=== PATIENT | male | born 1980 | race Caucasian/White ===

== ENCOUNTER 2020-10-17 17:14 | Emergency (ER) | payer OTHER, SELFPAY ==
--- NOTE | 2020-10-17 | ECG_ITS ---
Test Reason : CHEST PAIN Blood Pressure : / mmHG Vent. Rate : 076 BPM Atrial Rate : 076 BPM P-R Int : 142 ms QRS Dur : 082 ms QT Int : 382 ms P-R-T Axes : 064 015 020 degrees QTc Int : 429 ms Normal sinus rhythm Normal ECG When compared with ECG of 23-MAR-2013 18:39, No significant change was found Referred By: Elaine Reis Electronically Signed By:GLADYS CLEMENTS MD
[2020-10-17 17:46] VITALS: BP 124/69; PULSE 99; RESP 16; TEMP 36.5; O2SAT 99; BMI 36.3
--- NOTE | 2020-10-17 17:52 | CT_ITS ---
EXAMINATION: CT abdomen pelvis w con CLINICAL INFORMATION: Reason for Exam diffuse abd pain, worse RLQ and periumbillical COMPARISON: No prior CT available for comparison. TECHNIQUE: Multidetector volumetric imaging was performed from the superior aspect of the liver through the pubic symphysis 85 mL Omnipaque 350 injected. Sagittal and coronal reformatted images were obtained on the technologist's workstation. This CT examination was performed using dose optimization techniques as appropriate, variously including the following: *Automated exposure control *Adjustment of mA and/or kV according to patient size (this includes techniques or standardized protocols for targeted exams where dose is matched to indication/reason for exam; i.e. extremities or head) *Use of iterative reconstruction technique DLP: 851 mGy-cm FINDINGS: LOWER THORAX: Included lung bases are clear. HEPATOBILIARY: No focal hepatic lesions. No biliary ductal dilatation. GALLBLADDER: Gallbladder unremarkable. SPLEEN: Spleen is normal in size. PANCREAS: No focal mass or ductal dilatation. STOMACH AND GASTROINTESTINAL TRACT: Postsurgical changes of from prior partial gastrectomy, there is a fluid-filled structure at the GE junction which could be a hiatal hernia versus diverticulum measure 3.4 x 3.3 cm. There is no bowel distention or thickening. No CT evidence of appendicitis. ADRENALS: No adrenal nodules. KIDNEYS/URETERS: No hydronephrosis, stones or solid mass lesions. URINARY BLADDER: Partially decompressed. PELVIC VISCERA: Unremarkable PERITONEUM: There is a cloudy hazy mesentery mid abdomen just inferior to the pancreas, compatible with mesenteric panniculitis nonspecific radiologic finding. LYMPH NODES: No lymphadenopathy. VASCULAR:Abdominal aorta normal in size, no aneurysm found. BONES, ABDOMINAL WALL AND SOFT TISSUES: Age-appropriate changes of the spine and skeletal system, no destructive osteolytic or osteosclerotic bone lesion found CT/CT abdomen pelvis w con IMPRESSION: 1. No CT evidence of acute intra-abdominal process to explain patient's pain symptoms. No CT evidence of appendicitis. There is air within the lumen of the appendix which seem to be normal in diameter. 2. Postsurgical changes of from prior partial gastrectomy, there is fluid and air-filled structure at the GE junction which may represent hiatal hernia versus gastric diverticulum. 3. There is mild cloudy hazy mesentery mid abdomen just inferior to the pancreas, compatible with mesenteric panniculitis, nonspecific radiologic finding with long differential, please see below. Mesenteric panniculitis is a nonspecific finding and can coexistent with malignancy such as extra-abdominal non-Hodgkin lymphoma, breast carcinoma, prostate carcinoma, lung carcinoma, gastrointestinal carcinoma, colorectal carcinoma, melanoma, pancreatic neoplasm among other neoplasms. It also can coexist with benign process such as Crohn's disease, sarcoidosis, liver cirrhosis, colitis, lupus, sclerosing cholangitis, pancreatitis, mesenteritis, retroperitoneal fibrosis. It also could be idiopathic. Recommended clinical assessment and careful exclusion of possible other neoplasms. If no further action taken now, followup CT scan in 6 months advised. Reference: [place] [employer] December 1999, volume 174, #2.
--- NOTE | 2020-10-17 17:55 | ED.ABDPAIN ---
HPI - Abdominal Pain General Chief Complaint: Abdominal Pain Stated Complaint: ABD PAIN Time Seen by Provider: 10/17/20 17:44 Source: patient Mode of arrival: ambulatory Limitations: no limitations History of Present Illness HPI narrative: Patient comes to the emergency room complaining of abdominal pain. Patient states it started approximately 1 week ago with mild nausea, then patient noticed that every time he eats he has diffuse abdominal pain, seems to be worse in the periumbilical area and right lower quadrant. Patient states he has had kidney stones in the past where the pain is very different. Yesterday patient ate dinner pain was significant, then itself resolved. Earlier this morning patient had a small breakfast, had pain, resolved, then at 16:00 had dinner and the pain became unbearable. Therefore, patient came to the emergency room. Patient denies vomiting or constipation. Patient states the last 2 days he has had several episodes of loose stool, no blood in the stool. Of note, patient had a gastric sleeve surgery 1 year ago, which was done in [place]. MD elicited complaint: abdominal pain Related Data Previous Rx's Medication Instructions Recorded omeprazole 40 mg PO DAILY #20 cap 10/17/20 Allergies Allergy/AdvReac Type Severity Reaction Status Date / Time No Known Allergies Allergy Verified 10/17/20 19:28 Review of Systems Review of Systems Constitutional : No Weight loss, No Fever, No Chills, No Night Sweats, No Fatigue, No Malaise ENT/Mouth : No Hearing loss, No Ear Pain, No Nasal Congestion, No Sinus Pain, No Hoarseness, No sore throat, No Rhinorrhea, No Swallowing Difficulty Eyes: No Eye Pain, No Swelling, No Redness, No Foreign Body, No Discharge, No Vision Changes Cardiovascular : No Chest Pain, No SOB, No Dyspnea on Exertion, No Orthopnea, No Edema, No Palpitations Respiratory : No Cough, No Sputum, No Wheezing, No Smoke Exposure, No Dyspnea Gastrointestinal : No nausea, no vomiting, patient reports several episodes of loose stool, no blood in the stool, complaining diffuse abdominal pain after eating, much worse in the periumbilical area and right lower quadrant Genitourinary : no irregular bleeding, No Dysuria, No Urinary Frequency, No Hematuria, No Urinary Incontinence, No Urgency, No Flank Pain, No Urinary Flow Changes, No Hesitancy Musculoskeletal : No joint pain, No Myalgias, No Joint Swelling Skin : No Skin Lesions, No rash Neuro : No Weakness, No Numbness, No Paresthesias, No Loss of Consciousness, No Dizziness, No Headache Psych : No Anxiety/Panic, No Depression, No SI/HI/AH/VH, No Social Issues, Heme/Lymph: No Bruising, No Bleeding,No Lymphadenopathy Endocrine : No Polyuria, No Polydipsia, No Temperature Intolerance Physical Exam Vital Signs: Vital Signs: Last Vital Signs Temp 98.3 F 10/17/20 19:47 Pulse 83 10/17/20 19:47 Resp 20 10/17/20 19:47 BP 147/78 H 10/17/20 19:47 Pulse Ox 100 10/17/20 19:47 Body Mass Index 36.3 Appearance: Alert. Oriented X3. No acute distress. Eyes: Pupils equal, round and reactive to light. ENT: Pharynx normal. Neck: Normal inspection. Neck supple. No lymph nodes noted. No crepitus CVS: Normal heart rate and rhythm. Pulses normal. Normal S1 and S2 Respiratory: No respiratory distress. Breath sounds normal. No Wheezing. No rales Abdomen: Soft , no rigidity, no guarding, no peritoneal signs. Patient complaining of diffuse abdominal pain on deep palpation, much worse over the periumbilical area, right upper and lower quadrants. Skin: Skin warm and dry. Normal skin color. Normal skin turgor. Extremities: No lower extremity edema. No lower extremity edema. No Lacerations. No Rash Neuro: Oriented X 3. No motor deficit. No sensory deficit. Moving all extermities. No slurred speech. Course Course Course Narrative: While patient was waiting for his labs and CT scan reading to return, patient started complaining of left arm numbness and tingling and some chest discomfort. EKG was done immediately, within normal limits, troponin is pending. At this time, patient states he is asymptomatic. Patient's troponin is negative, EKG within normal limits. I discussed with the patient that he likely has gastritis versus peptic ulcer disease, I discussed the labs and CT scan with the patient. At this time, patient states that he feels well, no abdominal or chest pain. MDM - Abdominal Pain Lab Data Result diagrams: 10/17/20 18:17 10/17/20 18:17 Labs: Lab Results 10/17/20 10/17/20 10/17/20 Range/Units 18:17 18:17 18:17 WBC 7.8 (4.8-10.8) X10*3/uL RBC 4.92 (4.60-5.80) X10*6/uL Hgb 14.6 (14.0-18.0) g/dl Hct 43.2 (42-52) % MCV 87.8 (80-98) fL MCH 29.7 (27.0-33.0) pg MCHC 33.8 (31.0-36.0) g/dl RDW 12.2 (11.0-16.0) % Plt Count 284 (160-400) X10*3/uL MPV 9.7 (9.4-12.4) fL Immature Gran % (Auto) 0.3 (0.0-0.4) % Neut % (Auto) 57.4 (45-73) % Lymph % (Auto) 29.4 (20-40) % [place] % (Auto) 7.0 (2-11) % Eos % (Auto) 5.1 H (0-4) % Baso % (Auto) 0.8 (0-2) % Lymph # (Auto) 2.3 (1.2-4.9) X10*3/uL [place] # (Auto) 0.6 (0.1-1.2) X10*3/uL Eos # (Auto) 0.4 (0.0-0.4) X10*3/uL Baso # (Auto) 0.1 (0.0-0.2) X10*3/uL Abs Immat Gran (auto) 0.02 (0.00-0.03) X10*3/uL Absolute Neuts (auto) 4.5 (2.0-8.3) X10*3/uL Absolute Nucleated RBC 0.000 (0.0-0.012) X10*3/uL Nucleated RBC % (auto) 0.0 (0.0-0.2) /100WBC Sodium 140 (135-145) mmol/L Potassium 4.5 (3.3-5.1) mmol/l Chloride 106 (96-108) mmol/L Carbon Dioxide 26 (22-29) mmol/L Anion Gap 13 (12-20) BUN 16 (9-16) mg/dL Creatinine 1.21 (0.5-1.4) mg/dL Estim Creat Clear Calc 105.0 Estimated GFR > 60 Random Glucose 107 (60-115) mg/dL Calcium 9.2 (8.4-10.2) mg/dL Total Bilirubin 0.5 (0.0-1.0) mg/dL Direct Bilirubin < 0.2 (0.0-0.5) mg/dL AST 22 (5-37) U/L ALT 25 (0-40) U/L Alkaline Phosphatase 54 (39-117) U/L Troponin I High Sens (<3.5-35.0) ng/L Total Protein 7.2 (6.5-8.0) g/dL Albumin 4.5 (3.5-5.0) g/dL Lipase 48 (8-78) U/L Urine Color YELLOW Urine Appearance CLEAR Urine pH 5.5 (5.0-8.0) Ur Specific [place] >= 1.030 H (1.005-1.025) Urine Protein NEG (NEG-TRACE) MG/DL Urine Glucose (UA) NEG (NEG) MG/DL Urine Ketones NEG (NEG) MG/DL Urine Blood NEG (NEG) Urine Nitrite NEG (NEG) Ur Leukocyte Esterase NEG (NEG) 10/17/20 Range/Units 20:27 WBC (4.8-10.8) X10*3/uL RBC (4.60-5.80) X10*6/uL Hgb (14.0-18.0) g/dl Hct (42-52) % MCV (80-98) fL MCH (27.0-33.0) pg MCHC (31.0-36.0) g/dl RDW (11.0-16.0) % Plt Count (160-400) X10*3/uL MPV (9.4-12.4) fL Immature Gran % (Auto) (0.0-0.4) % Neut % (Auto) (45-73) % Lymph % (Auto) (20-40) % [place] % (Auto) (2-11) % Eos % (Auto) (0-4) % Baso % (Auto) (0-2) % Lymph # (Auto) (1.2-4.9) X10*3/uL [place] # (Auto) (0.1-1.2) X10*3/uL Eos # (Auto) (0.0-0.4) X10*3/uL Baso # (Auto) (0.0-0.2) X10*3/uL Abs Immat Gran (auto) (0.00-0.03) X10*3/uL Absolute Neuts (auto) (2.0-8.3) X10*3/uL Absolute Nucleated RBC (0.0-0.012) X10*3/uL Nucleated RBC % (auto) (0.0-0.2) /100WBC Sodium (135-145) mmol/L Potassium (3.3-5.1) mmol/l Chloride (96-108) mmol/L Carbon Dioxide (22-29) mmol/L Anion Gap (12-20) BUN (9-16) mg/dL Creatinine (0.5-1.4) mg/dL Estim Creat Clear Calc Estimated GFR Random Glucose (60-115) mg/dL Calcium (8.4-10.2) mg/dL Total Bilirubin (0.0-1.0) mg/dL Direct Bilirubin (0.0-0.5) mg/dL AST (5-37) U/L ALT (0-40) U/L Alkaline Phosphatase (39-117) U/L Troponin I High Sens 3.7 (<3.5-35.0) ng/L Total Protein (6.5-8.0) g/dL Albumin (3.5-5.0) g/dL Lipase (8-78) U/L Urine Color Urine Appearance Urine pH (5.0-8.0) Ur Specific [place] (1.005-1.025) Urine Protein (NEG-TRACE) MG/DL Urine Glucose (UA) (NEG) MG/DL Urine Ketones (NEG) MG/DL Urine Blood (NEG) Urine Nitrite (NEG) Ur Leukocyte Esterase (NEG) ECG Data Attestation: I personally reviewed and interpreted this ECG as follows: (Heart rate 76, normal sinus rhythm, QTC 429, no ST segment elevations or depressions, no T-wave inversions) Discharge Plan Discharge Clinical Impression: Abdominal pain Qualifiers: Abdominal location: unspecified location Qualified Code(s): R10.9 - Unspecified abdominal pain Gastritis Qualifiers: Gastritis type: unspecified gastritis Chronicity: acute Gastritis bleeding: without bleeding Qualified Code(s): K29.00 - Acute gastritis without bleeding Patient Disposition: Home, Self-Care Instructions: Gastritis (ED), Diet for Stomach Ulcers and Gastritis (ED) Additional Instructions: Please follow-up with your primary care physician tomorrow. If you have any worsening or new symptoms, please return to the emergency room or call 911 Prescriptions: New omeprazole 40 mg capsule,delayed release(DR/EC) 40 mg PO DAILY Qty: 20 RF: 0 PMFSH Past Medical History Medical History HTN (hypertension) Surgical History (Updated 10/17/20 @ 18:00 by Elaine Reis MD) History of sleeve gastrectomy Social History Social History Smoking Status: Never smoker Smoked in Last 30 Days: No Use of substances other than those prescribed or required for medical reasons: No Advance Directives: No Advance Directives Information Provided: Yes
[2020-10-17 18:23] LABS: Basophils Absolute Auto 0.1 X10*3/uL (0.0-0.2); Basophils Percent Auto 0.8 % (0-2); Eosinophils Absolute Auto 0.4 X10*3/uL (0.0-0.4); Eosinophils Percent Auto 5.1 % (0-4); Hematocrit 43.2 % (42-52); Hemoglobin 14.6 g/dl (14.0-18.0); Imm Gran Abs Auto 0.02 X10*3/uL (0.00-0.03); Imm Gran Pct Auto 0.3 % (0.0-0.4); Lymphocytes Absolute Auto 2.3 X10*3/uL (1.2-4.9); Lymphocytes Percent Auto 29.4 % (20-40); MANUAL DIFF FLAG NO; Mean Corpuscular HGB Conc 33.8 g/dl (31.0-36.0); Mean Corpuscular Hemoglobin 29.7 pg (27.0-33.0); Mean Corpuscular Volume 87.8 fL (80-98); Mean Platelet Volume 9.7 fL (9.4-12.4); Monocytes Absolute Auto 0.6 X10*3/uL (0.1-1.2); Neutrophils Absolute Auto 4.5 X10*3/uL (2.0-8.3); Neutrophils Percent Auto 57.4 % (45-73); Platelet Count 284 X10*3/uL (160-400); Red Blood Count 4.92 X10*6/uL (4.60-5.80); Red Cell Distribution Width 12.2 % (11.0-16.0); White Blood Count 7.8 X10*3/uL (4.8-10.8)
[2020-10-17 18:24] LABS: Appearance Urine CLEAR; Color Urine YELLOW; Glucose Urine UA NEG (NEG); Leukocyte Esterase Urine NEG (NEG); Nitrite Urine NEG (NEG); PH 5.5 (5.0-8.0); Specific Gravity - Urine >= 1.030 (1.005-1.025); Urine Blood NEG (NEG); Urine Ketones NEG (NEG); Urine Protein NEG (NEG-TRACE)
[2020-10-17] MEDS: 0.9 % Sodium Chloride 1,000 ML 999 ML IVCONT (18:34)
[2020-10-17] MEDS: Morphine Sulfate 4 MG/ML CARTRIDGE IVPUSH (18:34)
[2020-10-17 18:44] LABS: Alanine Aminotransferase 25 U/L (0-40); Albumin Level 4.5 g/dL (3.5-5.0); Alkaline Phosphatase 54 U/L (39-117); Anion Gap 13 (12-20); Aspartate Amino Transferase 22 U/L (5-37); Bilirubin Direct < 0.2 mg/dL (0.0-0.5); Bilirubin Total 0.5 mg/dL (0.0-1.0); Blood Urea Nitrogen 16 mg/dL (9-16); Calcium 9.2 mg/dL (8.4-10.2); Carbon Dioxide 26 mmol/L (22-29); Chloride 106 mmol/L (96-108); Estimated Glomerular Filt Rate > 60; Glucose Random 107 mg/dL (60-115); Lipase 48 U/L (8-78); Potassium 4.5 mmol/l (3.3-5.1); Sodium 140 mmol/L (135-145); Total Protein 7.2 g/dL (6.5-8.0)
[2020-10-17] MEDS: iohexoL 350 MG/ML 100 ML INFUS..BTL IV (19:11)
[2020-10-17 19:29] VITALS: BP 130/73; PULSE 76; RESP 18; TEMP 36.6; O2SAT 99
[2020-10-17 19:47] VITALS: BP 147/78; PULSE 83; RESP 20; TEMP 36.8; O2SAT 100
--- NOTE | 2020-10-17 20:11 | MHC.PIE ---
P: c/o chest tightness and right arm weakness. I: vss. ekg done, shows nsr. neuro intact. bedside cardiac monitoring initiated. made aware. n/o troponin.
[2020-10-17 20:57] LABS: Troponin-I High Sensitivity 3.7 ng/L (<3.5-35.0)
[2020-10-17] MEDS: Magnesium Hydrox/Alum Hydrox 30 ML ORAL.SUSP 15 ML PO (21:39)
[2020-10-17] MEDS: Lidocaine HCl Viscous 2 % 15 ML SOLUTION MUCOUS MEM (21:39)
== END 2020-10-17 21:50 | disposition home or self-care (01) ==
PROVIDERS: Emergency Provider Emergency Medicine; PCP Internal Medicine
DX: R10.9 Unspecified abdominal pain (principal); K29.00 Acute gastritis without bleeding; Z98.84 Bariatric surgery status; Z79.899 Other long term (current) drug therapy
CPT/HCPCS: 36415; 74177; 80048; 80076; 81003; 83690; 84484; 85025; 93005; 96361; 96374; 99284; 99285; J2270; Q9967

== ENCOUNTER 2020-10-22 13:57 | Outpatient (REF) | payer OTHER, SELFPAY | END 2020-10-22 13:58 | disposition home or self-care (01) | LOC: HO.LNP 13:57 | PROVIDERS: Visit Provider Internal Medicine | DX: Z20.828 Contact with and (suspected) exposure to other viral communicable diseases (principal) | CPT/HCPCS: U0003 ==

== ENCOUNTER 2020-11-18 08:54 | Outpatient (REF) | payer OTHER, SELFPAY | END 2020-11-18 08:55 | disposition home or self-care (01) | LOC: HO.LAB 08:54 | PROVIDERS: Visit Provider Internal Medicine | DX: Z20.828 Contact with and (suspected) exposure to other viral communicable diseases (principal) | CPT/HCPCS: C9803; U0003 ==

== ENCOUNTER 2021-03-03 20:42 | Emergency (ER) | payer OTHER, SELFPAY ==
[2021-03-03 22:11] VITALS: BP 129/71; PULSE 69; RESP 18; TEMP 37; O2SAT 99; BMI 36.2
[2021-03-03 22:49] LABS: Appearance Urine CLEAR; Color Urine YELLOW; Glucose Urine UA NEG (NEG); Leukocyte Esterase Urine NEG (NEG); Nitrite Urine NEG (NEG); Specific Gravity - Urine 1.025 (1.005-1.025); Urine Blood TRACE (NEG); Urine Ketones NEG (NEG); Urine Protein NEG (NEG-TRACE)
[2021-03-03 22:58] LABS: Bacteria Urine TRACE /LPF; RBC Urine 0-2 /HPF (0); WBC Urine 0 /HPF (0-4)
[2021-03-03 23:54] VITALS: BP 130/71; PULSE 65; RESP 18; TEMP 36.9; O2SAT 100
[2021-03-04] MEDS: Azithromycin 500 MG TABLET 1000 MG PO (01:16)
[2021-03-04] MEDS: cefTRIAXone sodium 500 MG, Lidocaine HCl 1 % MPF 1 ML IM (01:20)
--- NOTE | 2021-03-04 01:25 | ED_ITS ---
HPI - Male Genitourinary General Chief complaint: Urogenital-Male Stated complaint: Groin pain Time Seen by Provider: 03/04/21 00:35 Source: patient Mode of arrival: ambulatory Limitations: no limitations History of Present Illness HPI Narrative: 41-year-old male with no significant past medical history presents with dysuria and purulent penile discharge. Does not describe any testicular pain, and states to be in a monogamous relationship. Denies fevers, chills, chest pain or pressure, palpitations, shortness of breath, abdominal pain, abdominal distention, frequency, hesitancy, pain on defecation, diarrhea, constipation, or any other concerning symptoms. Complaint: penile discharge and dysuria Onset (ago): day(s) (4) Duration: constant Location: penis Severity: moderate Quality: burning Relieving factors: none Exacerbating factors: urination Associated symptoms: Reports denies other symptoms Related Data Sexually active: Yes Previous Rx's Medication Instructions Recorded omeprazole 40 mg PO DAILY #20 cap 10/17/20 Allergies Allergy/AdvReac Type Severity Reaction Status Date / Time No Known Allergies Allergy Verified 03/03/21 22:11 Review of Systems Review of Systems: Constitutional: No Fever, No Chills ENT/Mouth: No Ear Pain, No Hoarseness, No sore throat Eyes: No Eye Pain, No Swelling, No Redness, No Foreign Body Cardiovascular: No Chest Pain, No SOB Respiratory: No Cough, No Dyspnea Gastrointestinal: No Nausea, No Vomiting, No Diarrhea, No abdominal Pain Genitourinary: Positive Dysuria, positive penile discharge, No Hematuria Musculoskeletal: No joint pain, No Myalgias, No Joint Swelling Skin: No Skin lacerations, No rash Neuro: No Weakness, No Numbness, No Paresthesias, No Loss of Consciousness, No Dizziness, No Headache Psych: No Anxiety/Panic, No Depression Heme/Lymph: no easy bruising, no Lymphadenopathy Endocrine: No Polyuria, No Polydipsia Yes all other systems are reviewed and are negative [facility] Past Medical History Attestation statement: The following information was validated with the patient. Source: old records reviewed Medical History HTN (hypertension) Surgical History History of sleeve gastrectomy Social History Social History Smoking Status: Never smoker Advance Directives: No Physical Exam Vital Signs: Vital Signs: Last Vital Signs Temp 98.5 F 03/03/21 23:54 Pulse 65 03/03/21 23:54 Resp 18 03/03/21 23:54 BP 130/71 03/03/21 23:54 Pulse Ox 100 03/03/21 23:54 Body Mass Index 36.2 Appearance: Alert. Oriented X3. No acute distress. Eyes: Pupils equal, round and reactive to light. ENT: Pharynx normal. Neck: Normal inspection. Neck supple. CVS: Normal heart rate and rhythm. Pulses normal. Respiratory: No respiratory distress. Breath sounds normal. Abdomen: Soft and nontender. Genitourinary: No testicular pain, normal testicular exam, purulent penile discharge noted, no erythema or lesions noted to glans, shaft of penis, or testicles. Skin: Skin warm and dry. Normal skin color. Normal skin turgor. Extremities: No lower extremity edema. Neuro: No motor deficit. No sensory deficit. Course Course Course Narrative: 41-year-old male with no significant past medical history presents with penile discharge and dysuria. Will treat with ceftriaxone 500 mg IM and azithromycin. Patient was advised to follow up with Urology as he adamantly denies STI risk. Reassured patient verbalized understanding of and agrees to plan of care discharge home. MDM - Male Genitourinary MDM Narrative Medical decision making narrative: STI Differential Diagnosis Differential diagnosis: Likely urinary tract infection, urethritis, epididymitis and prostatitis Medical Records Attestation: I reviewed the patient's medical records. Lab Data Attestation: I reviewed the patient's lab results. Labs: Lab Results 03/03/21 Range/Units 22:29 Urine Color YELLOW Urine Appearance CLEAR Urine pH 6.0 (5.0-8.0) Ur Specific [place] 1.025 (1.005-1.025) Urine Protein NEG (NEG-TRACE) MG/DL Urine Glucose (UA) NEG (NEG) MG/DL Urine Ketones NEG (NEG) MG/DL Urine Blood TRACE (NEG) Urine Nitrite NEG (NEG) Ur Leukocyte Esterase NEG (NEG) Urine RBC 0-2 (0) /HPF Urine WBC 0 (0-4) /HPF Ur Squamous Epith Cells NONE /LPF Urine Bacteria TRACE /LPF Discharge Plan Discharge Clinical Impression: Urethritis Patient Disposition: Home, Self-Care Instructions: Nonspecific Urethritis in Men (ED) Additional Instructions: You were treated for urinary symptoms and penile discharge. We treated you with ceftriaxone and azithromycin. Please follow-up with Urology and or primary care as needed. Do not engage in sexual intercourse for at least 2 weeks. Thank you for choosing this emergency department for evaluation. Please follow-up with primary care physician as needed. Return to the emergency department for any new, concerning, or worsening symptoms. Prescriptions: No Action omeprazole 40 mg capsule,delayed release(DR/EC) 40 mg PO DAILY Qty: 20 RF: 0 Referrals: Billy Romero MD [Physician] - 2 days (Urethritis) Stand Alone Forms: Work/School Release Interventions: ED Discharge Assessment Last Done: 03/04/21 01:57 Discharge Date/Time: 03/04/21 01:58
[2021-03-04 05:01] LABS: CT PCR NOT DETECTED (Not Detect.); NG PCR DETECTED (Not Detect.)
== END 2021-03-04 01:58 | disposition home or self-care (01) ==
PROVIDERS: Emergency Provider Student in an Organized Health Care Education/Training Program; PCP Internal Medicine
DX: N34.2 Other urethritis (principal); A54.09 Other gonococcal infection of lower genitourinary tract; I10 Essential (primary) hypertension
CPT/HCPCS: 81001; 87491; 87591; 96372; 99284; J0696

== ENCOUNTER 2021-08-28 10:44 | Outpatient (REF) | payer OTHER, SELFPAY ==
[2021-08-28 11:41] LABS: Influenza A PCR NEGATIVE (Negative); Influenza B PCR NEGATIVE (Negative); Resp Syncy Virus RNA Qual PCR NEGATIVE (Negative); SARS COV2 PCR INHOUSE NEGATIVE (Negative)
== END 2021-08-28 10:45 | disposition home or self-care (01) ==
LOC: HO.LNP 10:44
PROVIDERS: Visit Provider Internal Medicine
DX: Z20.822 Contact with and (suspected) exposure to COVID-19 (principal); J02.9 Acute pharyngitis, unspecified; M79.10 Myalgia, unspecified site
CPT/HCPCS: 0241U

== ENCOUNTER 2021-11-07 10:59 | Outpatient (REF) | payer OTHER, SELFPAY ==
[2021-11-07 12:00] LABS: Influenza A PCR NEGATIVE (Negative); Influenza B PCR NEGATIVE (Negative); Resp Syncy Virus RNA Qual PCR NEGATIVE (Negative); SARS COV2 PCR INHOUSE NEGATIVE (Negative)
== END 2021-11-07 11:00 | disposition home or self-care (01) ==
LOC: HO.LNP 10:59
PROVIDERS: PCP Internal Medicine; Visit Provider Internal Medicine
DX: Z20.822 Contact with and (suspected) exposure to COVID-19 (principal); R51.9 Headache, unspecified; R50.9 Fever, unspecified
CPT/HCPCS: 0241U

== ENCOUNTER 2022-07-10 07:36 | Outpatient (REF) | payer OTHER, SELFPAY ==
[2022-07-10 10:28] LABS: MANUAL DIFF FLAG NO
[2022-07-10 10:30] LABS: Basophils Absolute Auto 0.1 X10*3/uL (0.0-0.2); Basophils Percent Auto 0.7 % (0-2); Eosinophils Absolute Auto 0.4 X10*3/uL (0.0-0.4); Eosinophils Percent Auto 4.4 % (0-4); Hematocrit 45.3 % (42.0-52.0); Hemoglobin 15.2 g/dl (14.0-18.0); Imm Gran Abs Auto 0.02 X10*3/uL (0.00-0.03); Imm Gran Pct Auto 0.2 % (0.0-0.4); Lymphocytes Absolute Auto 2.5 X10*3/uL (1.2-4.9); Lymphocytes Percent Auto 29.3 % (20-40); Mean Corpuscular HGB Conc 33.6 g/dl (31.0-36.0); Mean Corpuscular Hemoglobin 29.5 pg (27.0-33.0); Mean Corpuscular Volume 87.8 fL (80.0-98.0); Mean Platelet Volume 10.5 fL (9.4-12.4); Monocytes Absolute Auto 0.6 X10*3/uL (0.1-1.2); Monocytes Percent Auto 6.9 % (2-11); Neutrophils Absolute Auto 4.9 x10*3/uL (2.0-8.3); Neutrophils Percent Auto 58.5 % (45-73); Platelet Count 297 X10*3/uL (160-400); Red Blood Count 5.16 X10*6/uL (4.60-5.80); Red Cell Distribution Width 12.4 % (11.0-16.0); White Blood Count 8.4 X10*3/uL (4.8-10.8)
[2022-07-10 10:44] LABS: Alanine Aminotransferase 22 U/L (0-40); Albumin Level 4.3 g/dL (3.5-5.0); Alkaline Phosphatase 58 U/L (39-117); Anion Gap 12 (12-20); Aspartate Amino Transferase 19 U/L (5-37); Bilirubin Total 0.6 mg/dL (0.0-1.0); Blood Urea Nitrogen 13 mg/dL (9-16); Calcium 9.9 mg/dL (8.4-10.2); Carbon Dioxide 29 mmol/L (22-29); Chloride 106 mmol/L (96-108); Cholesterol 240 mg/dL; Estimated Glomerular Filt Rate > 60; Glucose Fasting 92 mg/dL (60-99); HDL Cholesterol 55 mg/dL; LDL Cholesterol Calculated 166 mg/dl; Potassium 4.9 mmol/L (3.3-5.1); Sodium 142 mmol/L (135-145); Total Protein 6.8 g/dL (6.5-8.0); Triglycerides 95 mg/dL
[2022-07-10 10:56] LABS: Appearance Urine Clear; Color Urine Yellow; Glucose Urine UA Negative (Negative); Leukocyte Esterase Urine Negative (Negative); Nitrite Urine Negative (Negative); Specific Gravity - Urine >= 1.030 (1.005-1.025); Urine Blood Negative (Negative); Urine Ketones Negative (Negative); Urine Protein Negative (Neg-Trace)
[2022-07-10 11:02] LABS: HBS Num1 0.08 mIU/mL (0-7.99); ~Hepatitis B Surface Antibody NONREACTIVE (Nonreactive)
[2022-07-10 11:09] LABS: Thyroid Stimulating Hormone 2.02 uIU/mL (0.32-4.0)
[2022-07-14 21:12] LABS: TS Negative Control Passed; TS Panel A 1; TS Panel B 1; TS Positive Control Passed; TSpotTB Negative (Negative)
== END 2022-07-10 07:37 | disposition home or self-care (01) ==
LOC: HO.10HDL 07:36
PROVIDERS: Visit Provider Internal Medicine
DX: Z00.00 Encounter for general adult medical examination without abnormal findings (principal); Z11.1 Encounter for screening for respiratory tuberculosis; R63.5 Abnormal weight gain
CPT/HCPCS: 36415; 80053; 80061; 81003; 84443; 85025; 86481; 86706

== ENCOUNTER 2022-07-16 07:49 | Outpatient (REF) | payer OTHER, SELFPAY ==
--- NOTE | ~2022-07-16 | FL_ITS ---
EXAMINATION: XR FLUOROSCOPY UPPER GI WITH AIR CLINICAL INFORMATION: Gastroesophageal reflux disease. Abdominal pain. COMPARISON: None TECHNIQUE: Upper GI was performed using thin and thick barium and effervescent granules. FINDINGS: There is abnormal esophageal motility with tertiary contractions. Exam is limited as the patient could not drink a large amount of barium. There is diffuse mucosal irregularity suggestive of esophagitis. No mass or stricture is seen. No hernia is seen. Evaluation for reflux is limited as the patient could not tolerate a large amount of oral contrast. There are postsurgical changes to the stomach following gastric sleeve procedure. No fold thickening, mass, ulcer or stricture is seen. Visualized small bowel is normal. FLUOROSCOPY TIME: 1.3 minutes DOSE AREA PRODUCT: 12.6 moreau per centimeter squared. 29 saved fluoroscopic images. FL/FL upper GI w air IMPRESSION: Limited exam as the patient could not drink large amount of oral contrast. Abnormal esophageal motility and esophagitis.
== END 2022-07-16 07:50 | disposition home or self-care (01) ==
LOC: HO.XRAY 07:49
PROVIDERS: PCP Internal Medicine; Visit Provider Internal Medicine
DX: K21.9 Gastro-esophageal reflux disease without esophagitis (principal); R10.9 Unspecified abdominal pain
CPT/HCPCS: 74246

== ENCOUNTER 2022-07-27 09:38 | Emergency (ER) | payer OTHER, SELFPAY ==
[2022-07-27 09:40] VITALS: BP 139/74; PULSE 90; RESP 18; TEMP 36.9; O2SAT 98; BMI 37.3
--- NOTE | 2022-07-27 09:59 | ED_ITS ---
HPI - General Adult General Chief complaint: Nausea/Vomiting/Diarrhea Stated complaint: Vomiting/Upper abd pain Time Seen by Provider: 07/27/22 09:59 Source: patient Mode of arrival: ambulatory Limitations: no limitations History of Present Illness HPI narrative: Patient is a 42 year old male presenting to the emergency department today with abdominal pain and nausea. Patient states that over the last 2 days he has had nausea and abdominal pain. Patient states that he is supposed to be getting an upper scope at some point soon for other stomach issues he has been having. Patient denies any dizziness, lightheadedness, fever, chills, blurry vision, double vision, loss of vision, chest pain, difficulty breathing, shortness of breath, back pain, night sweats, pain with urination, increased urinary frequency, increased urinary urgency, blood in his urine or stool, syncope or a near syncopal episode, recent trauma or falls, bowel incontinence, bladder incontinence, bowel retention, bladder retention, or any other complaints at this time. Onset (ago): day(s) (2) Location: abdomen Radiation: non-radiation Severity: mild Severity scale (1-10): 1 Quality: dull Pain Consistency: constant Relieving factors: none Exacerbating factors: none Associated symptoms: nausea/vomiting Treatments prior to arrival: none Related Data Previous Rx's Medication Instructions Recorded omeprazole 40 mg capsule,delayed 40 mg PO DAILY #20 caps 10/17/20 release Allergies Allergy/AdvReac Type Severity Reaction Status Date / Time No Known Allergies Allergy Verified 03/03/21 22:11 Review of Systems Constitutional: Constitutional: Reports no additional constitutional complaints, Denies chills, Denies fever(s) and Denies night sweats Eyes: Eyes: Reports no additional eye complaints, Denies blurry vision, Denies change in vision, Denies diplopia, Denies eye discharge, Denies loss of vision and Denies eye pain ENT: Denies dizziness Cardiovascular: Cardiovascular: Reports no additional cardiovascular c omplaints, Denies chest pain, Denies lightheadedness, Denies Loss of Consciousness and Denies dyspnea Respiratory: Respiratory: Reports no additional respiratory complaints and Denies dyspnea Gastrointestinal: Gastrointestinal: Reports no additional gastrointestinal complaints, Reports abdominal pain, Denies melena, Denies hematochezia, Denies change in bowel habits, Denies change in stool character, Reports nausea and Reports vomiting Genitourinary: Genitourinary: Reports no additional male genitourinary complaints, Denies hematuria, Denies oliguria, Denies difficulty urinating, Denies dysuria, Denies urinary frequency, Denies urinary hesitancy, Denies urinary incontinence and Denies urinary urgency Musculoskeletal: Musculoskeletal: Reports no additional musculoskeletal co mplaints, Denies numbness and Denies tingling Neurologic: Denies dizziness, Denies loss of vision, Denies numbness and Denies tingling Psychiatric: Psychiatric: Reports no additional psychiatric complaints Endocrine: Endocrine: Reports no additional endocrine complaints Hematologic/Lymphatic: Hematologic/Lymphatic: Reports no additional hematologic/lymphatic complaints Allergic/Immunologic: Allergic/Immunologic: Reports no additional allergic/immunologic complaints [facility] Past Medical History Attestation statement: The following information was validated with the patient. Source: old records reviewed Medical History HTN (hypertension) Surgical History History of sleeve gastrectomy Social History Social History Advance Directives: No Advance Directives Information Provided: No Physical Exam ED Vital Signs: Vital Signs - 24 hr 07/27/22 09:40 Temperature 98.4 F Pulse Rate 90 Respiratory Rate 18 Blood Pressure 139/74 Pulse Oximetry 98 Oxygen Delivery Method Room Air BMI result Body Mass Index 37.3 Const General: cooperative, no acute distress, alert and awake Nutritional Appearance: well nourished Orientation/consciousness: patient oriented x3 Limitations: no limitations [facility] Head: Yes normal to inspection and Yes atraumatic Ears: hearing grossly normal bilaterally and external ears normal General nose exam: Normal external nose present, no nasal discharge noted and no epistaxis Face and sinus: Yes normal facial exam, No abrasion and No laceration Mouth: Normal oral and palatal mucosa present, no drooling and no muffled voice Eyes General: appearance normal, both eyes and all related structures Periorbital: periorbital findings normal Eyelids: Yes eyelids normal Conjunctivae: conjunctivae normal Pupils: Equal, round and reactive pupils present EOM: EOMs intact bilaterally Neck Neck: Yes normal visual inspection, Yes full ROM and Yes no lymphadenopathy Chest Chest palpation & inspection: normal inspection of the chest Resp Effort & Inspection: normal respiratory effort and able to speak in complete sentences Auscultation: clear to auscultation bilaterally Cardio Rate: regular rate Rhythm: regular rhythm GI Inspection: Yes normal to inspection Palpation (GI): Soft to palpation, not firm, nontender, no guarding and not rig id Neuro General: patient oriented x3 and moves all extremities Cranial nerves: Yes Equal, round and reactive pupils present Cognition (Neuro): normal cognition Motor exam (neuro): 5/5 motor strength present throughout Sensory Exam: Normal double simultaneous stimulation for sensation Coordination: [id number] test normal Extrem General: Yes normal to inspection, Yes full ROM and Yes capillary refill normal Psych Appearance: grossly normal Mental Status: mental status grossly normal Affect: normal affect Attitude: cooperative Thought process: Normal thought process present Thought content: Normal thought content present Insight: Good insight present (Psych) Medical Decision Making MDM Narrative Medical decision making narrative: Patient is a 42 year old [male/female] presenting to the emergency department today with abdominal pain and nausea. Patient's physical exam was unremarkable. Patient's blood work was unremarkable. Patient's rapid COVID-19 test was positive. I explained my physical exam findings as well as all test results to the patient. I answered all questions asked by the patient. I stressed the importance of the patient taking his medication as prescribed. I stressed the importance of the patient following up with his primary care provider. I stressed the importance of the patient returning to the emergency department immediately if his symptoms were to worsen or if he were to develop any dizziness, shortness of breath, difficulty breathing, chest pain, blurry vision, loss of vision, nausea, vomiting, abdominal pain, fever, chills, back pain, or any other complaints. Patient verbalized agreement and understanding with this treatment plan and discharge. Differential Diagnosis Differential Diagnosis: COVID-19 Medical Records Medical records reviewed: Yes I reviewed the patient's medical records. Lab Data Lab results reviewed: Yes I reviewed the patient's lab results. Result diagrams: 07/27/22 10:16 07/27/22 11:11 Labs: Lab Results 07/27/22 07/27/22 07/27/22 Range/Units 10:16 10:16 10:24 WBC 10.9 H (4.8-10.8) X10*3/uL RBC 5.50 (4.60-5.80) X10*6/uL Hgb 16.0 (14.0-18.0) g/dl Hct 47.0 (42.0-52.0) % MCV 85.5 (80.0-98.0) fL MCH 29.1 (27.0-33.0) pg MCHC 34.0 (31.0-36.0) g/dl RDW 12.2 (11.0-16.0) % Plt Count 303 (160-400) X10*3/uL MPV 10.1 (9.4-12.4) fL Immature Gran % (Auto) 0.3 (0.0-0.4) % Neut % (Auto) 85.1 H (45-73) % Lymph % (Auto) 6.4 L (20-40) % [place] % (Auto) 7.0 (2-11) % Eos % (Auto) 0.6 (0-4) % Baso % (Auto) 0.6 (0-2) % Lymph # (Auto) 0.7 L (1.2-4.9) X10*3/uL [place] # (Auto) 0.8 (0.1-1.2) X10*3/uL Eos # (Auto) 0.1 (0.0-0.4) X10*3/uL Baso # (Auto) 0.1 (0.0-0.2) X10*3/uL Abs Immat Gran (auto) 0.03 (0.00-0.03) X10*3/uL Absolute Neuts (auto) 9.3 H (2.0-8.3) x10*3/uL Absolute Nucleated RBC 0.000 (0.0-0.012) X10*3/uL Nucleated RBC % (auto) 0.0 (0.0-0.2) /100WBC Sodium (135-145) mmol/L Potassium (3.3-5.1) mmol/L Chloride (96-108) mmol/L Carbon Dioxide (22-29) mmol/L Anion Gap (12-20) BUN (9-16) mg/dL Creatinine (0.5-1.4) mg/dL Estim Creat Clear Calc Estimated GFR Random Glucose (60-115) mg/dL Calcium (8.4-10.2) mg/dL Magnesium (1.6-2.6) mg/dL Total Bilirubin (0.0-1.0) mg/dL AST (5-37) U/L ALT (0-40) U/L Alkaline Phosphatase (39-117) U/L Total Protein (6.5-8.0) g/dL Albumin (3.5-5.0) g/dL Urine Color Yellow Urine Appearance Clear Urine pH 8.5 (5.0-9.0) Ur Specific [place] 1.020 (1.005-1.025) Urine Protein Negative (Neg-Trace) mg/dL Urine Glucose (UA) Negative (Negative) mg/dL Urine Ketones Negative (Negative) mg/dL Urine Blood Negative (Negative) Urine Nitrite Negative (Negative) Ur Leukocyte Esterase Trace H (Negative) Urine RBC 0-2 (0-2) /HPF Urine WBC 0-5 (0-5) /HPF Ur Squamous Epith Cells 0-2 (0-2) /HPF Urine Bacteria None Seen (None Seen) Hyaline Casts 0-2 (0-2) /LPF COVID-19 (NICOLASA) Positive A (Negative) COVID-19 Clin Com See Note 07/27/22 Range/Units 11:11 WBC (4.8-10.8) X10*3/uL RBC (4.60-5.80) X10*6/uL Hgb (14.0-18.0) g/dl Hct (42.0-52.0) % MCV (80.0-98.0) fL MCH (27.0-33.0) pg MCHC (31.0-36.0) g/dl RDW (11.0-16.0) % Plt Count (160-400) X10*3/uL MPV (9.4-12.4) fL Immature Gran % (Auto) (0.0-0.4) % Neut % (Auto) (45-73) % Lymph % (Auto) (20-40) % [place] % (Auto) (2-11) % Eos % (Auto) (0-4) % Baso % (Auto) (0-2) % Lymph # (Auto) (1.2-4.9) X10*3/uL [place] # (Auto) (0.1-1.2) X10*3/uL Eos # (Auto) (0.0-0.4) X10*3/uL Baso # (Auto) (0.0-0.2) X10*3/uL Abs Immat Gran (auto) (0.00-0.03) X10*3/uL Absolute Neuts (auto) (2.0-8.3) x10*3/uL Absolute Nucleated RBC (0.0-0.012) X10*3/uL Nucleated RBC % (auto) (0.0-0.2) /100WBC Sodium 139 (135-145) mmol/L Potassium 4.3 (3.3-5.1) mmol/L Chloride 107 (96-108) mmol/L Carbon Dioxide 24 (22-29) mmol/L Anion Gap 12 (12-20) BUN 12 (9-16) mg/dL Creatinine 1.17 (0.5-1.4) mg/dL Estim Creat Clear Calc 111.0 Estimated GFR > 60 Random Glucose 100 (60-115) mg/dL Calcium 9.0 D (8.4-10.2) mg/dL Magnesium 1.6 (1.6-2.6) mg/dL Total Bilirubin 0.7 (0.0-1.0) mg/dL AST 19 (5-37) U/L ALT 21 (0-40) U/L Alkaline Phosphatase 54 (39-117) U/L Total Protein 6.8 (6.5-8.0) g/dL Albumin 4.3 (3.5-5.0) g/dL Urine Color Urine Appearance Urine pH (5.0-9.0) Ur Specific [place] (1.005-1.025) Urine Protein (Neg-Trace) mg/dL Urine Glucose (UA) (Negative) mg/dL Urine Ketones (Negative) mg/dL Urine Blood (Negative) Urine Nitrite (Negative) Ur Leukocyte Esterase (Negative) Urine RBC (0-2) /HPF Urine WBC (0-5) /HPF Ur Squamous Epith Cells (0-2) /HPF Urine Bacteria (None Seen) Hyaline Casts (0-2) /LPF COVID-19 (NICOLASA) (Negative) COVID-19 Clin Com Discharge Plan Discharge Clinical Impression: COVID-19 Patient Disposition: Home, Self-Care Instructions: COVID-19 (Coronavirus Disease 2019) (ED) Additional Instructions: Follow up with your primary care provider. Return to the emergency department immediately if your symptoms worsen or if you develop any dizziness, shortness of breath, difficulty breathing, chest pain, blurry vision, loss of vision, nausea, vomiting, abdominal pain, fever, chills, back pain, or any other complaints. Prescriptions: No Action omeprazole 40 mg capsule,delayed release(DR/EC) 40 mg PO DAILY Qty: 20 0RF Referrals: Chip Harper MD [Primary Care Provider] - Stand Alone Forms: Work/School Release Interventions: ED Discharge Assessment Last Done: 07/27/22 12:15 Discharge Date/Time: 07/27/22 12:15 Print Language: Uzbek
[2022-07-27 10:21] LABS: MANUAL DIFF FLAG NO
[2022-07-27] MEDS: ondansetron HCL 4 MG/2 ML VIAL IVPUSH (10:21)
[2022-07-27] MEDS: 0.9 % Sodium Chloride 1,000 ML 999 ML IV (10:21)
[2022-07-27 10:23] LABS: Basophils Absolute Auto 0.1 X10*3/uL (0.0-0.2); Basophils Percent Auto 0.6 % (0-2); Eosinophils Absolute Auto 0.1 X10*3/uL (0.0-0.4); Eosinophils Percent Auto 0.6 % (0-4); Imm Gran Abs Auto 0.03 X10*3/uL (0.00-0.03); Imm Gran Pct Auto 0.3 % (0.0-0.4); Lymphocytes Absolute Auto 0.7 X10*3/uL (1.2-4.9); Lymphocytes Percent Auto 6.4 % (20-40); Mean Corpuscular Hemoglobin 29.1 pg (27.0-33.0); Mean Corpuscular Volume 85.5 fL (80.0-98.0); Mean Platelet Volume 10.1 fL (9.4-12.4); Monocytes Absolute Auto 0.8 X10*3/uL (0.1-1.2); Neutrophils Absolute Auto 9.3 x10*3/uL (2.0-8.3); Neutrophils Percent Auto 85.1 % (45-73); Platelet Count 303 X10*3/uL (160-400); Red Cell Distribution Width 12.2 % (11.0-16.0); White Blood Count 10.9 X10*3/uL (4.8-10.8)
[2022-07-27 10:31] LABS: Appearance Urine Clear; Color Urine Yellow; Glucose Urine UA Negative (Negative); Leukocyte Esterase Urine Trace (Negative); Nitrite Urine Negative (Negative); PH 8.5 (5.0-9.0); Urine Blood Negative (Negative); Urine Ketones Negative (Negative); Urine Protein Negative (Neg-Trace)
[2022-07-27 10:32] LABS: COVID-19 Test Positive (Negative)
[2022-07-27 10:33] LABS: Bacteria Urine None Seen (None Seen); Hyaline Casts Urine 0-2 /LPF (0-2); RBC Urine 0-2 /HPF (0-2); Squamous Epithelial Cell Urine 0-2 /HPF (0-2); WBC Urine 0-5 /HPF (0-5)
[2022-07-27 11:34] LABS: Alanine Aminotransferase 21 U/L (0-40); Albumin Level 4.3 g/dL (3.5-5.0); Alkaline Phosphatase 54 U/L (39-117); Anion Gap 12 (12-20); Aspartate Amino Transferase 19 U/L (5-37); Bilirubin Total 0.7 mg/dL (0.0-1.0); Blood Urea Nitrogen 12 mg/dL (9-16); Carbon Dioxide 24 mmol/L (22-29); Chloride 107 mmol/L (96-108); Estimated Glomerular Filt Rate > 60; Glucose Random 100 mg/dL (60-115); Magnesium 1.6 mg/dL (1.6-2.6); Potassium 4.3 mmol/L (3.3-5.1); Sodium 139 mmol/L (135-145); Total Protein 6.8 g/dL (6.5-8.0)
== END 2022-07-27 12:15 | disposition home or self-care (01) ==
PROVIDERS: Physician Assistant Medical; Emergency Provider Emergency Medicine; PCP Internal Medicine
DX: U07.1 COVID-19 (principal); R11.2 Nausea with vomiting, unspecified; I10 Essential (primary) hypertension; Z90.3 Acquired absence of stomach [part of]
CPT/HCPCS: 80053; 81001; 83735; 85025; 87635; 96374; 99284; J2405

== ENCOUNTER 2022-08-03 13:12 | Outpatient (REF) | payer OTHER, SELFPAY ==
--- NOTE | ~2022-08-03 | XR_ITS ---
EXAMINATION: XR CHEST CLINICAL INFORMATION: SOB and cough COMPARISON: None TECHNIQUE: 2 views of the chest were obtained. FINDINGS: No significant abnormality is noted involving the heart, lungs, mediastinum, bony thorax or soft tissues. XR/XR chest 2V IMPRESSION: Unremarkable chest examination.
== END 2022-08-03 13:13 | disposition home or self-care (01) ==
LOC: HO.XRAY 13:12
PROVIDERS: PCP Internal Medicine; Visit Provider Internal Medicine
DX: R06.02 Shortness of breath (principal); R05.9 Cough, unspecified
CPT/HCPCS: 71046

== ENCOUNTER 2022-08-14 08:51 | Day surgery (SDC) | payer OTHER, SELFPAY ==
--- NOTE | 2022-08-13 09:54 | HO.ANESPROP2 ---
Documented by User: Katelynn Lehman NP 08/13/22 09:56 HPI - Anesthesia Eval Consult details Narrative: 42yo M for Upper Endoscopy Covid + 07/27/22 s/p gastric sleeve PMFSH Active Problems Active Problems: All Active Problems (Updated 07/27/22 @ 11:53 by BRITTA Zaldivar) COVID-19 (Acute) Past Medical History Medical History Asthma COVID Elevated cholesterol HTN (hypertension) Nasal polyp Surgical History Surgical History History of ear surgery History of sleeve gastrectomy History of tonsillectomy and adenoidectomy Hx of colonoscopy Social History Social History Patient Tobacco Use Status: Never used Tobacco Are you DNR?: No Advance Directives: No Advance Directives Information Provided: Yes Recently lost weight without trying: No Nutrition Risks: No Nutritional Risk Meds Allergies Allergy/AdvReac Type Severity Reaction Status Date / Time No Known Allergies Allergy Verified 03/03/21 22:11 Home Medications Medication Instructions Recorded Confirmed Last Taken Type atorvastatin 10 mg tablet 1 tab PO DAILY 08/13/22 08/14/22 08/07/22 History albuterol sulfate 90 mcg/actuation 1 inhalation QID PRN Wheezing 08/14/22 07/01/22 History aerosol inhaler lisinopril 10 mg tablet mg PO DAILY 08/14/22 08/07/22 History Exam Exam Date and Time: August 13, 2022 0954 Pertinent Lab Results Pertinent Lab Results: Laboratory Tests 07/27/22 07/27/22 10:16 11:11 WBC 10.9 H Hgb 16.0 Hct 47.0 Plt Count 303 Sodium 139 Potassium 4.3 Chloride 107 Carbon Dioxide 24 BUN 12 Creatinine 1.17 Assessment and Plan Assessment Anesthesia Assessment: Chart Reviewed Documented by User: Karolyn Oliver MD 08/14/22 09:42 PMFSH Past Medical History Medical History Asthma COVID Elevated cholesterol HTN (hypertension) Nasal polyp Surgical History Surgical History History of ear surgery History of sleeve gastrectomy History of tonsillectomy and adenoidectomy Hx of colonoscopy History of Problems with Anesthesia: No Social History Social History Patient Tobacco Use Status: Never used Tobacco Are you DNR?: No Advance Directives: No Advance Directives Information Provided: Yes Recently lost weight without trying: No Nutrition Risks: No Nutritional Risk Meds Allergies Allergy/AdvReac Type Severity Reaction Status Date / Time No Known Allergies Allergy Verified 03/03/21 22:11 Home Medications Medication Instructions Recorded Confirmed Last Taken Type atorvastatin 10 mg tablet 1 tab PO DAILY 08/13/22 08/14/22 08/07/22 History albuterol sulfate 90 mcg/actuation 1 inhalation QID PRN Wheezing 08/14/22 07/01/22 History aerosol inhaler lisinopril 10 mg tablet mg PO DAILY 08/14/22 08/07/22 History Exam Airway Mallampati Class: III ( Rust) TM Dist: >3cm Neck ROM: Full Loose/Missing/Broken Teeth: No Heart: RRR Lungs: CTA Assessment and Plan Assessment Anesthesia Assessment: Anesthesia Plan Discussed Final Anesthetic Review History of Problems with Anesthesia: No NPO: Yes ASA Class: II Final Preanesthetic Review: Meds/Allgs Chart Reviewed, Consent Obtained/Reviewed and Anes Risks/Benef Reviewed Patient Risk: Low Procedure Risk: Intermediate Anesthetic Plan Anesthetic Plan: MAC: Disposition: Standard PACU
[2022-08-14 06:50] VITALS: BMI 34.8
[2022-08-14 08:57] VITALS: BP 147/77; PULSE 77; RESP 18; TEMP 36.3; O2SAT 98
[2022-08-14] MEDS: Lactated Ringers 1,000 ML 100 ML IVCONT (09:29)
[2022-08-14 10:38] VITALS: BP 108/70; PULSE 77; RESP 20; TEMP 36.1; O2SAT 99
--- NOTE | 2022-08-14 10:42 | P.BOP_ITS ---
Brief Operative Note Date of Service: 08/14/22 Pre-op diagnosis: GERD Post-op diagnosis: other (Hiatal hernia) Procedure: EGD with biopsies Surgeon: Alfredo Centeno Anesthesia: MAC Was an Buttonhole Machine Operator used for this Procedure?: No Estimated blood loss (mL): 2.0 Pathology: other (A. EG Junction at 38cm B. Esophagus 20-25cm) Condition: stable Disposition: PACU
[2022-08-14 10:53] VITALS: BP 130/82; PULSE 87; RESP 20; O2SAT 97
[2022-08-14 11:01] VITALS: BP 128/79; PULSE 74; RESP 20; TEMP 36.6; O2SAT 97
--- NOTE | 2022-08-14 22:44 | OP_ITS ---
SURGEON: Alfredo Centeno MD INDICATIONS: The patient presents for evaluation of gastroesophageal reflux, abnormal upper GI series, and intermittent nausea and vomiting. Full consent has been obtained from him for this, including risks of bleeding and perforation. PREOPERATIVE DIAGNOSIS: POSTOPERATIVE DIAGNOSIS: PROCEDURE PERFORMED: Esophagogastroduodenoscopy with biopsies. ESTIMATED BLOOD LOSS: COMPLICATIONS: ANESTHESIA: Monitored anesthesia care. ASSISTANTS: SPECIMENS: PREOPERATIVE DIAGNOSES: Gastroesophageal reflux, nausea and vomiting, abnormal upper GI series. POSTOPERATIVE DIAGNOSES: Gastroesophageal reflux, nausea and vomiting, abnormal upper GI series, small hiatal hernia. DESCRIPTION OF PROCEDURE: The patient was placed in the left lateral decubitus position. The Olympus video gastroscope was passed in the posterior oropharynx and upper esophagus under direct vision. The scope was passed slowly to the distal esophagus. The gastroesophageal junction appeared normal at 38 cm other than some very minimal irregularity. There was no esophagitis, esophageal stricture, esophageal ring, nor any gross evidence of Rodriguez mucosa. There was no evidence of a diverticulum in the distal esophagus. The scope easily entered into the stomach. The scope was advanced to the pylorus, and the duodenum was cannulated to the descending portion. The duodenum including the bulb appeared normal without mass or ulceration. The scope was withdrawn back to the stomach. The gastric antrum and body appeared normal with good peristalsis. The scope was retroflexed visualizing the proximal stomach carefully, which appeared normal, without any sign of mass or ulceration. The scope was straightened. In the proximal half of the stomach, there did appear to be some relative narrowing consistent with his previous sleeve gastrectomy and a scar. However, it did distend fairly well. There was no mucosal abnormality. The scope was withdrawn back in the esophagus. Biopsies were obtained at the EG junction at 38 cm. Proximal to this, the esophageal mucosa appeared normal. Biopsies were obtained at 25 cm to rule out eosinophilic esophagitis. There was no evidence of any esophageal rings nor strictures in the proximal esophagus. The scope was withdrawn from the patient. He tolerated the procedure well and was returned to the recovery area in stable condition. IMPRESSION: Small hiatal hernia, gastroesophageal reflux. Some relative narrowing in the proximal stomach in relation to his sleeve gastrectomy. This may have accounted for the UGI series findings and his symptoms of problems when he first begins his meal. PLAN: The results of the biopsy will be checked. Given his intermittent symptoms, I shall start him on omeprazole 40 mg daily for a trial to see if that would give him some improvement in regard to his upper GI complaints. He will be seen in the office for a followup visit as well. I did review the endoscopy findings with him and his in regard to the relative narrowing in the proximal stomach that are probably contributing to his UGI symptoms. Therefore, he has been instructed to eat small amounts at a time and to eat slowly in general.. MD ETHAN Caballero/KERON / [id number] MTDD
== END 2022-08-14 11:50 | disposition home or self-care (01) ==
PROVIDERS: PCP Internal Medicine; Visit Provider Internal Medicine
PROC: 0DJ08ZZ Inspection of Upper Intestinal Tract, Via Natural or Artificial Opening Endoscopic (ICD-10-PCS; CPT 43235; principal; 2022-08-14 10:20)
DX: K21.9 Gastro-esophageal reflux disease without esophagitis (principal); R11.2 Nausea with vomiting, unspecified; R93.3 Abnormal findings on diagnostic imaging of other parts of digestive tract; K44.9 Diaphragmatic hernia without obstruction or gangrene; Z98.84 Bariatric surgery status; J45.909 Unspecified asthma, uncomplicated; I10 Essential (primary) hypertension; E78.00 Pure hypercholesterolemia, unspecified; Z79.899 Other long term (current) drug therapy; Z86.16 Personal history of COVID-19
CPT/HCPCS: 43239; 88305

== ENCOUNTER 2023-02-25 16:47 | Outpatient (REF) | payer OTHER, SELFPAY ==
--- NOTE | ~2023-02-25 | XR_ITS ---
EXAMINATION: XR CHEST CLINICAL INFORMATION: Rib pain COMPARISON: Chest radiographs 08/03/2022, 04/04/2016 TECHNIQUE: 2 views of the chest were obtained. FINDINGS: Lungs are clear. No pneumothorax or pleural reaction. No pneumonia mediastinum. No free air beneath the diaphragms. The heart is normal in size and the vascularity is unremarkable. No infiltrate or effusion. The hilar and mediastinal contours are unremarkable. Bony structures are similar to prior studies. Again, there are surgical clips left upper quadrant abdomen. XR/XR chest 2V IMPRESSION: Unremarkable examination.
[2023-02-25 16:57] LABS: MANUAL DIFF FLAG NO
[2023-02-25 17:25] LABS: Basophils Absolute Auto 0.1 X10*3/uL (0.0-0.2); Basophils Percent Auto 0.9 % (0-2); Eosinophils Absolute Auto 0.3 X10*3/uL (0.0-0.4); Eosinophils Percent Auto 3.2 % (0-4); Hematocrit 45.8 % (42.0-52.0); Hemoglobin 15.5 g/dl (14.0-18.0); Imm Gran Abs Auto 0.02 X10*3/uL (0.00-0.03); Imm Gran Pct Auto 0.2 % (0.0-0.4); Lymphocytes Absolute Auto 2.5 X10*3/uL (1.2-4.9); Lymphocytes Percent Auto 26.4 % (20-40); Mean Corpuscular HGB Conc 33.8 g/dl (31.0-36.0); Mean Corpuscular Volume 85.6 fL (80.0-98.0); Monocytes Absolute Auto 0.7 X10*3/uL (0.1-1.2); Monocytes Percent Auto 7.3 % (2-11); Platelet Count 334 X10*3/uL (160-400); Red Blood Count 5.35 X10*6/uL (4.60-5.80); Red Cell Distribution Width 12.2 % (11.0-16.0); White Blood Count 9.6 X10*3/uL (4.8-10.8)
[2023-02-25 17:49] LABS: D Dimer High Sensitivity < 150 NG/ML
[2023-02-25 17:55] LABS: Alanine Aminotransferase 28 U/L (0-40); Albumin Level 4.7 g/dL (3.5-5.0); Alkaline Phosphatase 58 U/L (39-117); Anion Gap 15 (12-20); Aspartate Amino Transferase 23 U/L (5-37); Bilirubin Total 0.5 mg/dL (0.0-1.0); Blood Urea Nitrogen 14 mg/dL (9-16); C Reactive Protein 0.42 mg/dL (< or = 0.50); Calcium 10.3 mg/dL (8.4-10.2); Carbon Dioxide 27 mmol/L (22-29); Chloride 108 mmol/L (96-108); Estimated Glomerular Filt Rate > 60; Glucose Random 94 mg/dL (60-115); Potassium 5.2 mmol/L (3.3-5.1); Sodium 145 mmol/L (135-145); Total Protein 7.2 g/dL (6.5-8.0)
[2023-02-25 18:10] LABS: Appearance Urine Clear; Color Urine Yellow; Glucose Urine UA Negative (Negative); Leukocyte Esterase Urine Negative (Negative); Nitrite Urine Negative (Negative); PH 6.5 (5.0-9.0); Specific Gravity - Urine 1.025 (1.005-1.025); Urine Blood Negative (Negative); Urine Ketones Negative (Negative); Urine Protein Negative (Neg-Trace)
== END 2023-02-25 16:48 | disposition home or self-care (01) ==
LOC: HO.LAB 16:47
PROVIDERS: PCP Internal Medicine; Visit Provider Internal Medicine
DX: R10.9 Unspecified abdominal pain (principal); R07.81 Pleurodynia
CPT/HCPCS: 36415; 71046; 80053; 81003; 85025; 85379; 86140

== ENCOUNTER 2023-03-18 07:50 | Outpatient (REF) | payer OTHER, SELFPAY ==
--- NOTE | ~2023-03-18 | US_ITS ---
EXAMINATION: US ABDOMEN COMPLETE CLINICAL INFORMATION: Right abdominal pain. COMPARISON: CT abdomen and pelvis 10/17/2020. TECHNIQUE: Real-time imaging of the abdominal viscera. FINDINGS: PANCREAS: Not well visualized due to bowel gas. ABDOMINAL AORTA: The proximal abdominal aorta is not well visualized due to bowel gas. Distal abdominal aorta are normal in caliber. INFERIOR VENA CAVA: Visualized portions are normal. LIVER: The liver is normal in size. The liver contour is normal. Liver echotexture is increased probably representing fatty aeration. There are hypoechoic areas adjacent to the gallbladder, characteristic location of focal fatty sparing. No other focal hepatic lesion. There is no intrahepatic biliary duct dilatation seen. GALLBLADDER: Normal. The gallbladder is physiologically distended without evidence of stones, sludge, polyps, wall thickening or pericholecystic fluid. COMMON BILE DUCT: Normal in caliber measuring 0.4 cm in diameter. RIGHT KIDNEY: Normal. No hydronephrosis. No renal calculi or focal parenchymal lesions. The kidney measures 11.4 cm in maximum dimension. LEFT KIDNEY: Normal. No hydronephrosis. No renal calculi or focal parenchymal lesions. The kidney measures 10.5 cm in maximum dimension. SPLEEN: Normal. The spleen measures 11.2 cm in maximum dimension. FREE FLUID: None. US/US abdomen complete IMPRESSION: Fatty liver. Normal-appearing gallbladder. Limited visualization of the upper abdominal aorta and pancreas.
== END 2023-03-18 07:51 | disposition home or self-care (01) ==
LOC: HO.US 07:50
PROVIDERS: PCP Internal Medicine; Visit Provider Internal Medicine
DX: R10.84 Generalized abdominal pain (principal)
CPT/HCPCS: 76700

== ENCOUNTER 2023-04-06 08:49 | Outpatient (REF) | payer OTHER, SELFPAY ==
--- NOTE | ~2023-04-06 | CT_ITS ---
EXAMINATION: CT ABDOMEN AND PELVIS WITHOUT CONTRAST CLINICAL INFORMATION: Right lower quadrant pain COMPARISON: Previous CT of the abdomen and pelvis September 2020 and ultrasound February 2023 TECHNIQUE: Multidetector volumetric imaging was performed from the superior aspect of the liver through the pubic symphysis. Sagittal and coronal reformatted images were obtained on the technologist's workstation. This CT examination was performed using dose optimization techniques as appropriate, variously including the following: *Automated exposure control *Adjustment of mA and/or kV according to patient size (this includes techniques or standardized protocols for targeted exams where dose is matched to indication/reason for exam; i.e. extremities or head) *Use of iterative reconstruction technique DLP: 888 mGy-cm FINDINGS: LUNG BASES: The visualized lung bases are unremarkable. LIVER, GALLBLADDER, AND BILIARY TREE: The liver is low in attenuation suggestive of fatty infiltration. There is normal in size and contour. No focal hepatic lesion or biliary ductal dilatation is present. The gallbladder is unremarkable with no evidence of radiopaque gallstones, gallbladder wall thickening, or obvious pericholecystic inflammatory changes. PANCREAS: Unremarkable. SPLEEN: Unremarkable. ADRENAL GLANDS: Unremarkable. KIDNEYS AND URETERS: The kidneys are normal in size, shape, and attenuation. No hydronephrosis, hydroureter, or calculi seen. No perinephric stranding. BLADDER: Unremarkable. GASTROINTESTINAL TRACT: The small nonspecific mild infiltration of the small bowel mesentery and shotty adenopathy or олег mesentery sign. This is similar to previous exams. The small and large bowel are unremarkable. The appendix is unremarkable. Postsurgical changes to the stomach. Previously identified questioned gastric diverticulum or outpouching at the posterior GE junction with air-fluid level appears decreased in size from September 2020 exam. ABDOMINAL WALL: No significant hernia is appreciated. LYMPH NODES: Normal. VASCULAR: Unremarkable. PELVIC VISCERA: Unremarkable. OSSEOUS STRUCTURES: Degenerative changes of the spine. CT/CT abdomen pelvis wo IV con IMPRESSION: Normal-appearing appendix. Postsurgical changes to the stomach. Interval decrease in size in the outpouching or air-fluid level in the posterior proximal stomach. Mild small bowel олег mesentery sign. This is nonspecific and is stable from prior exams. Fleischner guidelines were followed.
== END 2023-04-06 08:50 | disposition home or self-care (01) ==
LOC: HO.CT 08:49
PROVIDERS: PCP Internal Medicine; Visit Provider Internal Medicine
DX: R10.31 Right lower quadrant pain (principal)
CPT/HCPCS: 74176

== ENCOUNTER 2023-08-05 16:36 | Outpatient (REF) | payer OTHER, SELFPAY ==
--- NOTE | ~2023-08-05 | XR_ITS ---
EXAMINATION: XR FOOT, RIGHT CLINICAL INFORMATION: Pain COMPARISON: None available. TECHNIQUE: 3 views of right foot. FINDINGS: The bones and soft tissues are normal. No fracture. Alignment is anatomic. Joint spaces are maintained. XR/XR foot RT min 3V IMPRESSION: Normal right foot.
--- NOTE | ~2023-08-05 | XR_ITS ---
EXAMINATION: XR KNEE, RIGHT CLINICAL INFORMATION: Pain COMPARISON: 09/20/2018 TECHNIQUE: Four views of the right knee. FINDINGS: No fracture or joint effusion. Alignment is anatomic. Joint spaces are maintained. There is minimal spurring of the patella. No abnormal soft tissue calcification. XR/XR knee RT 3V IMPRESSION: Mild degenerative changes in patellofemoral
--- NOTE | ~2023-08-05 | XR_ITS ---
EXAMINATION: XR KNEE, LEFT CLINICAL INFORMATION: Pain COMPARISON: 09/20/2018 TECHNIQUE: Four views of the left knee. FINDINGS: No fracture or joint effusion. Alignment is anatomic. Joint spaces are maintained. There is mild patellar spurring not associated with joint effusion. No abnormal soft tissue calcification. XR/XR knee LT 3V IMPRESSION: Degenerative changes in patellofemoral compartment on the left
== END 2023-08-05 16:37 | disposition home or self-care (01) ==
LOC: HO.XRAY 16:36
PROVIDERS: PCP Internal Medicine; Visit Provider Internal Medicine
DX: M79.671 Pain in right foot (principal); M25.562 Pain in left knee; M25.561 Pain in right knee
CPT/HCPCS: 73562; 73630

== ENCOUNTER 2023-08-09 16:50 | Outpatient (REF) | payer OTHER, SELFPAY ==
[2023-08-09 18:40] LABS: Alanine Aminotransferase 24 U/L (0-40); Albumin Level 4.5 g/dL (3.5-5.0); Alkaline Phosphatase 56 U/L (39-117); Anion Gap 13 (12-20); Aspartate Amino Transferase 21 U/L (5-37); Bilirubin Total 0.7 mg/dL (0.0-1.0); Blood Urea Nitrogen 13 mg/dL (9-16); Calcium 10.2 mg/dL (8.4-10.2); Carbon Dioxide 25 mmol/L (22-29); Chloride 107 mmol/L (96-108); Estimated Glomerular Filt Rate > 60; Glucose Random 79 mg/dL (60-115); Potassium 4.2 mmol/L (3.3-5.1); Sodium 141 mmol/L (135-145); Total Protein 7.3 g/dL (6.5-8.0)
[2023-08-09 18:55] LABS: Free T4 (Free Thyroxine) 0.94 ng/dL (0.71-1.85); Thyroid Stimulating Hormone 0.45 uIU/mL (0.32-4.0)
== END 2023-08-09 16:51 | disposition home or self-care (01) ==
LOC: HO.LAB 16:50
PROVIDERS: PCP Internal Medicine; Visit Provider Internal Medicine
DX: R00.2 Palpitations (principal); I10 Essential (primary) hypertension; R19.7 Diarrhea, unspecified
CPT/HCPCS: 36415; 80053; 82550; 83735; 84439; 84443

== ENCOUNTER → 2023-08-18 13:23 | Outpatient (REF) | payer OTHER, SELFPAY ==
--- NOTE | 2023-08-18 13:27 | HM_ITS ---
Conclusion: 1. Patient was monitored for total period of 2 days and 23 hours 2. Baseline was normal sinus rhythm with average heart of 71 beats per minute 3. No significant pauses noted 4. Rare ectopy noted 5. Patient reported 13 events either as dizziness or heart racing correlating sinus rhythm was sinus tachycardia MTDD
== END ==
LOC: HO.CARD 13:23
PROVIDERS: PCP Internal Medicine; Visit Provider Internal Medicine
DX: R00.2 Palpitations (principal)
CPT/HCPCS: 93242

== ENCOUNTER → 2023-08-18 13:27 | Outpatient (BNV) | payer OTHER, SELFPAY | PROVIDERS: PCP Internal Medicine; Visit Provider Internal Medicine Cardiovascular Disease | DX: R00.2 Palpitations (principal) | CPT/HCPCS: 93244 ==

== ENCOUNTER 2024-04-07 15:48 | Outpatient (REF) | payer OTHER, SELFPAY ==
--- NOTE | ~2024-04-07 | XR_ITS ---
EXAMINATION: XR CHEST CLINICAL INFORMATION: Include an infectious/inflammatory process versus other etiology. COMPARISON: 02/25/2023. TECHNIQUE: 2 views of the chest were obtained. FINDINGS: There is no gross pneumothorax. Heart size within normal limits. Increased focal hazy opacity in the lower left lung measures approximately 2 cm. Differential considerations include a focal infectious/inflammatory process versus ill-defined pulmonary nodular process. Correlation with clinical exam recommended to determine further management. Recommend follow-up imaging in 4 weeks to confirm resolution. CT scan of the chest could be obtained for further evaluation. No significant pleural effusion. Mild degenerative changes in the thoracic spine. XR/XR chest 2V IMPRESSION: Increased focal hazy opacity in the lower left lung measures approximately 2 cm. Differential considerations include a focal infectious/inflammatory process versus ill-defined pulmonary nodular process. Correlation with clinical exam recommended to determine further management. Recommend follow up imaging in 4 weeks to confirm resolution. CT scan of the chest could be obtained for further evaluation. This study was presented Thursday, April 25, 2024 for interpretation. PSA staff will provide results to referring provider at this time.
[2024-04-07 16:05] LABS: MANUAL DIFF FLAG NO
[2024-04-07 17:11] LABS: Basophils Absolute Auto 0.1 X10*3/uL (0.0-0.2); Eosinophils Absolute Auto 0.4 X10*3/uL (0.0-0.4); Eosinophils Percent Auto 5.1 % (0-4); Hematocrit 42.2 % (42.0-52.0); Hemoglobin 13.8 g/dl (14.0-18.0); Imm Gran Abs Auto 0.02 X10*3/uL (0.00-0.03); Imm Gran Pct Auto 0.3 % (0.0-0.4); Mean Corpuscular HGB Conc 32.7 g/dl (31.0-36.0); Mean Corpuscular Hemoglobin 29.4 pg (27.0-33.0); Mean Platelet Volume 10.5 fL (9.4-12.4); Monocytes Absolute Auto 0.4 X10*3/uL (0.1-1.2); Monocytes Percent Auto 5.9 % (2-11); Neutrophils Absolute Auto 4.3 x10*3/uL (2.0-8.3); Neutrophils Percent Auto 59.7 % (45-73); Platelet Count 268 X10*3/uL (160-400); Red Blood Count 4.69 X10*6/uL (4.60-5.80); Red Cell Distribution Width 12.9 % (11.0-16.0); White Blood Count 7.3 X10*3/uL (4.8-10.8)
[2024-04-07 17:35] LABS: Alanine Aminotransferase 28 U/L (0-40); Albumin Level 4.4 g/dL (3.5-5.0); Alkaline Phosphatase 70 U/L (39-117); Anion Gap 16 (12-20); Aspartate Amino Transferase 27 U/L (5-37); Bilirubin Total 0.5 mg/dL (0.0-1.0); Blood Urea Nitrogen 11 mg/dL (9-16); C Reactive Protein < 0.10 mg/dL (< or = 0.50); Calcium 9.4 mg/dL (8.4-10.2); Carbon Dioxide 26 mmol/L (22-29); Chloride 107 mmol/L (96-108); Cholesterol 182 mg/dL (<200); Estimated Glomerular Filt Rate > 60; Glucose Random 76 mg/dL (60-115); Iron 83 mcg/dL (45-160); Percent Iron Saturation 29 % (15-50); Potassium 4.5 mmol/L (3.3-5.1); Sodium 144 mmol/L (135-145); Total Iron Binding Capacity 289 mcg/dL (228-428); Unsaturated Iron Binding 206 ug/dL
[2024-04-07 17:52] LABS: Free T4 (Free Thyroxine) 0.81 ng/dL (0.71-1.85); Thyroid Stimulating Hormone 1.16 uIU/mL (0.32-4.0)
[2024-04-07 17:54] LABS: Vitamin B12 333 pg/mL (200-900)
== END 2024-04-07 15:49 | disposition home or self-care (01) ==
LOC: HO.LAB 15:48
PROVIDERS: PCP Internal Medicine; Visit Provider Internal Medicine
DX: R19.7 Diarrhea, unspecified (principal); R63.4 Abnormal weight loss; Z82.49 Family history of ischemic heart disease and other diseases of the circulatory system; R53.83 Other fatigue
CPT/HCPCS: 36415; 71046; 80053; 82465; 82550; 82607; 83540; 84439; 84443; 85025; 86140

== ENCOUNTER 2024-08-08 11:03 | Outpatient (REF) | payer OTHER, SELFPAY ==
[2024-08-08 12:20] LABS: Influenza A PCR NEGATIVE (Negative); Influenza B PCR NEGATIVE (Negative); Resp Syncy Virus RNA Qual PCR NEGATIVE (Negative); SARS COV2 PCR INHOUSE NEGATIVE (Negative)
== END 2024-08-08 11:04 | disposition home or self-care (01) ==
LOC: HO.LNP 11:03
PROVIDERS: Visit Provider Internal Medicine
DX: R05.9 Cough, unspecified (principal); R06.02 Shortness of breath; J02.9 Acute pharyngitis, unspecified
CPT/HCPCS: 0241U

== ENCOUNTER 2024-09-14 12:24 | Day surgery (SDC) | payer OTHER, SELFPAY ==
[2024-09-12 09:42] VITALS: BMI 27.8
--- NOTE | 2024-09-13 10:13 | P.CONAN_ITS ---
Documented by User: Katelynn Lehman NP 09/13/24 10:13 HPI - Anesthesia Eval Consult details Narrative: 44yo M for Colonoscopy [facility] Active Problems Active Problems: All Active Problems COVID-19 (Acute) Past Medical History Medical History COVID Nasal polyp Asthma Elevated cholesterol HTN (hypertension) Surgical History Surgical History History of esophagogastroduodenoscopy (EGD) History of ear surgery History of tonsillectomy and adenoidectomy Hx of colonoscopy History of sleeve gastrectomy History of Problems with Anesthesia: No Social History Social History Are you a primary respiratory care faculty to a significant other at home: No Do you presently have visiting nurse or other home services: No Patient Tobacco Use Status: Never used Tobacco Have you been hit, kicked, punched, or otherwise hurt by someone within the past year? If so, by whom?: No Are you DNR?: No Advance Directives: No Advance Directives Information Provided: Yes Recently lost weight without trying: No Nutrition Risks: No Nutritional Risk Meds Allergies Allergy/AdvReac Type Severity Reaction Status Date / Time No Known Allergies Allergy Verified 09/14/24 13:03 Home Medications ?Medication ?Instructions ?Recorded ?Confirmed ?Last Taken ?Type No Known Home Meds 09/14/24 09/14/24 Unknown History Exam Height,Weight and Vital Signs: Height 6 ft Weight 92.986 kg Assessment and Plan Assessment Anesthesia Assessment: Chart Reviewed Final Anesthetic Review History of Problems with Anesthesia: No Documented by User: Melvin Knowles MD 09/14/24 14:11 [facility] Past Medical History Medical History COVID Nasal polyp Asthma Elevated cholesterol HTN (hypertension) Family History Family history of problems with anesthesia: No Surgical History Surgical History History of esophagogastroduodenoscopy (EGD) History of ear surgery History of tonsillectomy and adenoidectomy Hx of colonoscopy History of sleeve gastrectomy History of Problems with Anesthesia: Yes (PONV) Social History Social History Are you a primary respiratory care faculty to a significant other at home: No Do you presently have visiting nurse or other home services: No Patient Tobacco Use Status: Never used Tobacco Have you been hit, kicked, punched, or otherwise hurt by someone within the past year? If so, by whom?: No Are you DNR?: No Advance Directives: No Advance Directives Information Provided: Yes Recently lost weight without trying: No Nutrition Risks: No Nutritional Risk Meds Allergies Allergy/AdvReac Type Severity Reaction Status Date / Time No Known Allergies Allergy Verified 09/14/24 13:03 Home Medications ?Medication ?Instructions ?Recorded ?Confirmed ?Last Taken ?Type No Known Home Meds 09/14/24 09/14/24 Unknown History Exam Narrative Narrative: Airway Mallampati Class: II TM Dist: >3cm Neck ROM: Full Loose/Missing/Broken Teeth: No Heart: ok Lungs: ok Assessment and Plan Assessment Anesthesia Assessment: Anesthesia Plan Discussed Final Anesthetic Review Family History of Problems with Anesthesia: No History of Problems with Anesthesia: Yes (PONV) NPO: Yes ASA Class: II Final Preanesthetic Review: No Changes in Pt Med Stat, Meds/Allgs Chart Reviewed, Consent Obtained/Reviewed and Anes Risks/Benef Reviewed Patient Risk: Low Procedure Risk: Low Anesthetic Plan Anesthetic Plan: MAC: and Agree w/ Assess. and Plan Disposition: Standard PACU
[2024-09-14 13:35] VITALS: BP 132/73; PULSE 69; RESP 18; TEMP 36.6; O2SAT 98
[2024-09-14] MEDS: Lactated Ringers 1,000 ML 100 ML IVCONT (13:39)
[2024-09-14 14:43] VITALS: BP 99/54; PULSE 61; RESP 18; TEMP 36.9; O2SAT 98
--- NOTE | 2024-09-14 14:44 | PM.OP ---
Brief Operative Note Date of Service: 09/14/24 Pre-op diagnosis: Screening Post-op diagnosis: other (Diverticulosis) Procedure: Colonoscopy to the cecum and TI Surgeon: Alfredo Centeno MD Anesthesia: MAC Was an Administrative Support Associate used for this Procedure?: No Estimated blood loss (mL): 0 Pathology: none sent Condition: stable Disposition: PACU
[2024-09-14 14:58] VITALS: BP 112/61; PULSE 62; RESP 16; O2SAT 99
[2024-09-14 15:03] VITALS: BP 114/64; PULSE 68; RESP 16; TEMP 36.8; O2SAT 99
--- NOTE | 2024-09-15 08:25 | OP_ITS ---
DATE OF SERVICE: 09/14/2024 SURGEON: Alfredo Centeno MD INDICATIONS: The patient presents for evaluation of colorectal cancer screening and family history of colon cancer. Full consent has been obtained from him for this, including risks of bleeding and perforation. PREOPERATIVE DIAGNOSIS: POSTOPERATIVE DIAGNOSIS: PROCEDURE PERFORMED: Colonoscopy to the cecum and terminal ileum. ESTIMATED BLOOD LOSS: COMPLICATIONS: ANESTHESIA: Monitored anesthesia care. ASSISTANTS: SPECIMENS: PREOPERATIVE DIAGNOSES: Colorectal cancer screening and family history of colon cancer. POSTOPERATIVE DIAGNOSES: Colorectal cancer screening and family history of colon cancer, occasional sigmoid diverticulosis, internal hemorrhoids. DESCRIPTION OF PROCEDURE: The patient was placed in the left lateral decubitus position. The digital rectal exam revealed no abnormalities. The Olympus video pediatric colonoscope was entered into the rectum and advanced easily to the cecum. Once in the cecum, I did identify normal-appearing cecal pouch with appendiceal orifice and a normal-appearing ileocecal valve. The terminal ileum was cannulated and appeared normal. The scope was withdrawn back in the colon. The entire cecum and ileocecal valve appeared normal. The scope was slowly withdrawn assessing all mucosal surfaces carefully. Preparation was excellent. I did not visualize any sign of polyps, colitis, nor angiodysplasia. There were occasional diverticula noted in the sigmoid colon. In the rectum, scope was retroflexed visualizing internal hemorrhoids, but no other pathology. The rectal mucosa appeared normal. The scope was straightened and withdrawn from the patient. He tolerated the procedure well and was returned to the recovery area in stable condition. IMPRESSION: 1. Occasional sigmoid diverticulosis. 2. Internal hemorrhoids. PLAN: Given his family history of his father having a colon cancer in his 60s, I would recommend a followup coloscopy in 5 years for further screening and surveillance. 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 He will otherwise see me on a p.r.n. basis. Alfredo Centeno MD RMEric/KERON / [id number]
== END 2024-09-14 15:29 | disposition home or self-care (01) ==
PROVIDERS: PCP Internal Medicine; Visit Provider Internal Medicine
PROC: 0DJD8ZZ Inspection of Lower Intestinal Tract, Via Natural or Artificial Opening Endoscopic (ICD-10-PCS; CPT 45378; principal; 2024-09-14 14:00)
DX: Z12.11 Encounter for screening for malignant neoplasm of colon (principal); Z80.0 Family history of malignant neoplasm of digestive organs; K57.30 Diverticulosis of large intestine without perforation or abscess without bleeding; K64.8 Other hemorrhoids; K22.70 Barrett's esophagus without dysplasia; I10 Essential (primary) hypertension; E78.00 Pure hypercholesterolemia, unspecified; J45.909 Unspecified asthma, uncomplicated; Z79.899 Other long term (current) drug therapy; Z98.84 Bariatric surgery status
CPT/HCPCS: 45378; J2003; J2704

== ENCOUNTER 2024-09-25 11:58 | Outpatient (REF) | payer OTHER, SELFPAY ==
[2024-09-25 13:37] LABS: Appearance Urine Clear; Color Urine Yellow; Glucose Urine UA Negative (Negative); Leukocyte Esterase Urine Negative (Negative); Nitrite Urine Negative (Negative); PH 5.5 (5.0-9.0); Urine Blood Negative (Negative); Urine Ketones Negative (Negative); Urine Protein Negative (Neg-Trace)
[2024-09-25 14:19] LABS: Prostate Specific Antigen Scr 1.24 ng/mL (<0.05-4.0)
[2024-09-27 23:49] LABS: TS Negative Control Passed; TS Panel A 2; TS Panel B 3; TS Positive Control Passed; TSpotTB Negative (Negative)
== END 2024-09-25 11:59 | disposition home or self-care (01) ==
LOC: HO.10HDL 11:58
PROVIDERS: Visit Provider Internal Medicine
DX: R35.1 Nocturia (principal); Z12.5 Encounter for screening for malignant neoplasm of prostate
CPT/HCPCS: 36415; 81003; 84153; 86481

== ENCOUNTER 2024-10-06 07:29 | Outpatient (REF) | payer OTHER, SELFPAY | END 2024-10-06 07:30 | disposition home or self-care (01) | LOC: HO.US 07:29 | PROVIDERS: PCP Internal Medicine; Visit Provider Internal Medicine | DX: R10.811 Right upper quadrant abdominal tenderness (principal) | CPT/HCPCS: 76700 ==

== ENCOUNTER 2025-01-17 18:27 | Emergency (ER) | payer OTHER, SELFPAY ==
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
[2025-01-17 18:34] VITALS: BP 149/94; PULSE 63; RESP 16; TEMP 36.5; O2SAT 99; BMI 29.5
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
--- NOTE | 2025-01-17 19:45 | PC.NURSE ---
discharged per provider
== END 2025-01-17 20:31 | disposition home or self-care (01) ==
LOC: HO.ED 20:11
PROVIDERS: Emergency Provider Internal Medicine; PCP Internal Medicine
DX: S39.012A Strain of muscle, fascia and tendon of lower back, initial encounter (principal); V43.02XA Car driver injured in collision with other type car in nontraffic accident, initial encounter; Y93.9 Activity, unspecified; Y92.481 Parking lot as the place of occurrence of the external cause; Y99.9 Unspecified external cause status
CPT/HCPCS: 72070; 72100; 99281; 99283

== ENCOUNTER → 2025-01-17 18:38 | Outpatient (BNV) | payer OTHER, SELFPAY | PROVIDERS: Emergency Provider Internal Medicine; PCP Internal Medicine; Visit Provider Radiology Diagnostic Radiology | DX: M54.50 Low back pain, unspecified (principal); M54.6 Pain in thoracic spine; V89.2XXA Person injured in unspecified motor-vehicle accident, traffic, initial encounter | CPT/HCPCS: 72070; 72100 ==

== ENCOUNTER 2025-02-12 13:18 | Outpatient (AMB) | payer OTHER, SELFPAY ==
[2025-02-12 13:19] VITALS: BP 122/70; PULSE 86; RESP 14; TEMP 36.6; O2SAT 98; BMI 29.3
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
== END 2025-02-12 13:48 | disposition home or self-care (01) ==
LOC: HO.HMCHD 13:18
PROVIDERS: PCP Internal Medicine; Visit Provider Internal Medicine
DX: M54.9 Dorsalgia, unspecified (principal); L73.9 Follicular disorder, unspecified

== ENCOUNTER 2025-07-13 08:11 | Day surgery (SDC) | payer OTHER, MEDICAID, SELFPAY ==
--- OUTSIDE RECORDS SUMMARY | 2025-07-04 11:12 | XMS_ITS | Clinical Summary ---
Author Organization [address] [facility] Address [address] [place] [address] Phone Care Team Providers Care Frame Sample And Pattern Supervisor Name Role Phone Chip Harper MD Primary Care Provider [phone] Allergies Active Allergy Reactions Criticality Noted Date Comments House Dust Mite 06/06/2019 Pollen Extracts 06/06/2019 Medications wheat dextrin 3 gram/3.8 gram powder Take 4 g by mouth. 3 Active acetaminophen (TYLENOL) 500 mg tablet TAKE 2 TABLETS BY MOUTH EVERY 8 HOURS FOR 30 DAYS. 3 Active loperamide (IMODIUM) 2 mg capsule Take 1 capsule (2 mg total) by mouth. 4 Active lisinopriL (PRINIVIL,ZESTRIL) 5 mg tablet Take 1 tablet (5 mg total) by mouth 1 (one) time each day. 3 Active ondansetron ODT (ZOFRAN-ODT) 4 mg disintegrating tablet Take 1 tablet (4 mg total) by mouth. 3 Active pantoprazole (PROTONIX) 40 mg EC tablet Take 1 tablet (40 mg total) by mouth 1 (one) time each day. 3 Active polyethylene glycol (MIRALAX) 17 gram packet Take 17 g by mouth. 3 Active simethicone (MYLICON) 80 mg chewable tablet Chew 1 tablet (80 mg total). 4 Active ursodioL (ACTIGALL) 300 mg capsule Take 2 capsules (600 mg total) by mouth. 4 Active ergocalciferol (VITAMIN D-2) 1,250 mcg (50,000 unit) capsule TAKE 1 CAPSULE BY MOUTH ONCE A WEEK FOR 12 DOSES. 12 capsule 5 Active cholecalciferol (VITAMIN D-3) 1,250 mcg (50,000 unit) capsuleIndications: Bariatric surgery status TAKE 1 CAPSULE BY MOUTH ONE TIME PER WEEK 4 capsule 1 5 Active Active Problems Problem Noted Date Diagnosed Date Hypertension 09/29/2024 Overweight (BMI 25.0-29.9) 02/03/2024 Rodriguez's esophagus 08/14/2022 Overview (09/29/2024): Pathology from [facility] endoscopy - 08/14/22 Intertrigo 06/21/2019 Pannus, abdominal 06/21/2019 Skin laxity 06/21/2019 Surgical History Surgery Date Site/Laterality Comments OTHER SURGICAL HISTORY PROCEDURE: MA EXCISION NASAL POLYP SIMPLE Medical History Medical History Date Comments Hypertension DX:Hypertension Class 1 obesity due to exces s calories with serious comorbidity and body mass index (BMI) of 34.0 to 34.9 in adult 06/06/2019 DX:Class 1 obesit y due to excess calories with serious comorbidity and body mass index (BMI) of 34.0 to 34.9 in adult Family History Relation Name Status Comments Father Alive Mother Alive Social History Tobacco Use Types Packs/Day Years Used Date Smoking Tobacco: Never Smokeless Tobacco: Never Alcohol Use Standard Drinks/Week Comments No 0 (1 standard drink = 0.6 oz pur e alcohol) Sex and Gender Information Value Date Recorded Sex Assigned at Not on file Legal Sex Male 1:55 PM EST Gender Identity Not on file Sexual Orientation Not on file Obstetrics History Last Filed Vital Signs Vital Sign Reading Time Taken Comments Blood Pressure 131/75 05/08/2024 7:55 AM EDT Pulse 71 05/08/2024 7:55 AM EDT Temperature - - Respiratory Rate - - Oxygen Saturation - - Inhaled Oxygen Concentration - - Weight 90.7 kg (200 lb) 05/08/2024 7:55 AM EDT Height 175.3 cm (5' 9 ) 05/08/2024 7:55 AM EDT Body Mass Index 29.53 05/08/2024 7:55 AM EDT Plan of Treatment Health Maintenance Due Date Last Done Comments DTaP,Tdap,and Td Vaccines (1 - Tdap) 1998 Hepatitis B Vaccines (1 of 3 - 19+ 3-dose series) 1998 Colorectal Cancer Screening: Colonoscopy 10/21/2022 HIV Screening 10/21/2022 Hepatitis C Screening 10/21/2022 Social Influencers of Health Screening 10/21/2022 COVID-19 Vaccine (1 - 2023-2 5 season) 2024 Depression Screening 11/22/2024 Hypertension/CHF/CAD Annual BMP Blood Test 05/08/2025 05/08/2024, 05/08/2024 Influenza Vaccine (#1) 2025 Cholesterol Screening (Lipid Panel) 10/20/2027 10/20/2022 HIB Vaccines Aged Out No longer eligi ble based on patient's age to complete this topic HPV Vaccines Aged Out No longer eligi ble based on patient's age to complete this topic Hepatitis A Vaccines Aged Out No long er eligible based on patient's age to complete this topic IPV Vaccines Aged Out No longer eligi ble based on patient's age to complete this topic MMR Vaccines Aged Out No longer eligi ble based on patient's age to complete this topic Meningococcal ACWY Vaccine Aged Out N o longer eligible based on patient's age to complete this topic Meningococcal B Vaccine Aged Out No l onger eligible based on patient's age to complete this topic Pneumococcal Vaccine: Pediatrics (0 to 5 Years) and At-Risk Patients (6 to 49 Years) Aged Out No longer eligible b ased on patient's age to complete this topic RSV Immunization Patients Under 20 months Aged Out No longer eligible b ased on patient's age to complete this topic Varicella Vaccines Aged Out No longer eligible based on patient's age to complete this topic Procedures Procedure Name Priority Date/Time Associated Diagnosis Comments ANNUAL BMP BLOOD TEST Routine 05/08/2024 LIPID PANEL Routine 10/20/2022 from Last 3 Months or Most Recently Relevant to Health Maintenance Results * Annual BMP Blood Test (05/08/2024) Annual BMP Blood Test abstracted [facility] Provider MD HEALTH MAINTENANCE Final Result * (ABNORMAL) Lipid panel (10/20/2022) LDL/HDL Ratio 4 0 - 4 Triglycerides 108 0 - 150 mg/dL Cholesterol 226(A) 0 - 200 mg/dL HDL 56 >=40 mg/dL LDL Cholesterol 149(A) 0 - 100 mg/dL Blood Venous blood specimen / Unknown Historical Provider LAB BLOOD ORDERABLES Maria Alejandra l Result from Last 3 Months or Most Recently Relevant to Health Maintenance Insurance [facility] [address] [place] [id number] Care Teams Frame Sample And Pattern Supervisor Relationship Specialty Start Date End Date Chip Harper MD [address] [place] [address] [address] [place] PCP - General Internal Medicine 02/12/18
--- OUTSIDE RECORDS SUMMARY | 2025-07-04 11:12 | XMS_ITS | Patient Health Record ---
Author Organization [facility] Address [address] [place] [address] Care Team Providers Care Mechanic General Operational Test Name Role Phone JORDAN BUSTILLO Primary Care Provider Alfredo Green [phone] Allergies Allergen (clinical drug ingredient) Drug/Non Drug Allergy documented on EMR Reaction Allergy Type Onset Date Status seasonal (uncoded) Unknown Allergy A ctive Reason For Referral No Information Medications Medication SIG (Take, Route, Frequency, Duration) Notes Start Date End Date Status Gabapentin 300 MG TAKE 1 CAPSULE BY MO UTH IN THE MORNING AND 2 CAPSULES BY MOUTH IN THE EVENING Oral for 30 Days Active Cyclobenzaprine HCl 10 MG Oral for 30 Days Active Immunizations Vaccine Route Administration Date Status Comme nts Influenza Unknown 10/14/2021 Administered Problems Problem Type SNOMED Code ICD Code Onset Dates Problem Status W/U Status Risk Notes Problem Esophageal reflux (357807732) Esophageal reflux (K21.9) Active confirmed Problem Rectal bleeding (72138133) Rectal bleeding (K62.5) Active confirmed Problem Screening for malignant neoplasm of colon (782400436) Encounter for screening for malignant neoplasm of colon (Z12.11) Active confirmed Problem Pre-procedure evaluation check (755948711) Encounter for other preprocedural examination (Z01.818) Active confirmed Problem Diverticular disease of colon (775105050) Diverticulosis of large intestine without perforation or abscess without bleeding (K57.30) Active confirmed Problem Family History of Cancer of Colon (Situation) (863754174) Family history of colon cancer (Z80.0) Active confirmed Problem Gastroesophageal reflux disease (979142586) GERD (gastroesophageal reflux disease) (K21.9) Active confirmed Problem X-ray of gastrointestinal tract abnormal (610244183) Abnormal UGI series (R93.3) Active confirmed Problem Rodriguez's esophagus (643679647) Rodriguez''s esophagus without dysplasia (K22.70) Active confirmed Vital Signs Blood pressure diastolic 77 mm Hg 07/03/2025 Height 72 in 07/03/2025 Blood pressure systolic 111 mm Hg 07/03/2025 Weight 212 lbs 07/03/2025 BMI 28.75 kg/m2 07/03/2025 Procedures Procedure Date Ordered Date Performed Result Body Sit e UPPER GI ENDOSCOPY 07/03/2025 N/A Encounters Encounter Location Date Provider [place] [facility] [place] [address] [place] [phone] 09/14/2024 Alfredo Centeno Colon cancer screeni ng Z12.11 ; Family history of colon cancer Z80.0 ; Diverticulosis of large intestine without perforation or abscess without bleeding K57.30 and Other hemorrhoids K64.8 [facility] [address] [place] [phone] 07/03/2025 Alfredo Centeno Rodriguez''s esophagus without dysplasia K22.70 and Encounter for screening for malignant neoplasm of colon Z12.11 [facility] [address] [phone] 08/22/2024 Alfredo Centeno Encounter for screen ing for malignant neoplasm of colon Z12.11 ; Family history of colon cancer Z80.0 ; Encounter for other preprocedural examination Z01.818 ; Rodriguez''s esophagus without dysplasia K22.70 and Rectal bleeding K62.5 [facility] [address] [place] [phone] 08/22/[address] [facility] [address] [place] [phone] 08/24/[address] [facility] [address] [place] [address] [address] [place] [phone] 08/28/[address] [facility] [address] [place] [address] [phone] 09/26/2024 Alfredo Centeno Assessments Encounter Date Diagnosis (ICD Code) Assessment Notes Treatment Notes Treatment Clinical Notes Section Notes 09/14/2024 Colon cancer screening (ICD-10 - Z12.11) 09/14/2024 Family history of colon cancer (ICD-10 - Z80.0) 07/03/2025 Rodriguez''s esophagus without dysplasia (ICD-10 - K22.70) Overall, Bradley appears quite well. He is not having any new or worrisome GI complaints. We did review the negative colonoscopy last August and I advised him of the need for a follow-up colonoscopy in 2028 for further screening in regard to his father's history of colon cancer at a relatively early age in his 60s. I did recommend a follow-up upper endoscopy given his history of Rodriguez's esophagus and his last endoscopy being almost 3 years ago. We did review the theoretical increased risk of esophageal cancer in patients with Rodriguez's esophagus and the need for periodic surveillance endoscopies. Full consent is obtained for this, including risks of bleeding and perforation. The procedure will be done with monitored anesthesia care. Bradley was comfortable with this plan. Thank you again for allowing me to participate in Bradley's care. I shall continue to keep you advised of his progress. 08/22/2024 Encounter for screening for malignant neoplasm of colon (ICD-10 - Z12.11) Overall, Bradley appears quite well and seems to have benefited nicely from his recent revised bariatric surgery from a symptomatic standpoint. We did review that his loose bowel movements are consistent with some component of dumping syndrome and he should try to be careful with his diet and the amount of liquids he drinks with his meals. Given his significant family history of colon cancer in his father at approximately age 60, his recent episode of rectal bleeding, and Bradley's last colonoscopy being 9 years ago, I did recommend a followup colonoscopy for further evaluation. This will be done later this month given his concern regarding the bleeding and his family history. We did review the rationale for that in regard to colon cancer prevention. Given the finding of just the small area of Rodriguez's esophagus in July 2022, I did review with him the need for a followup endoscopy toward the latter part of 2024 for surveillance given the theoretical increased risk of esophageal cancer in patients with Rodriguez's esophagus. At this point he is asymptomatic in regard to any reflux issues and therefore I don't think he needs to be on any acid suppression therapy. He is obviously missing the majority of the stomach and therefore I don't think that is an issue anyway in regard to acid production. Full consent was obtained from him for the colonoscopy,, including risks of bleeding and perforation. The procedure will be done with monitored anesthesia care. I did advise Bradley that he should have a screening colonoscopy every 5 years given the family history, even if this upcoming colonoscopy is negative. Bradley was comfortable with this plan. Thank you again for allowing me to participate in Bradley's care. I shall continue to keep you advised of his progress. 08/22/2024 Family history of colon cancer (ICD-10 - Z80.0) Overall, Bradley appears quite well and seems to have benefited nicely from his recent revised bariatric surgery from a symptomatic standpoint. We did review that his loose bowel movements are consistent with some component of dumping syndrome and he should try to be careful with his diet and the amount of liquids he drinks with his meals. Given his significant family history of colon cancer in his father at approximately age 60, his recent episode of rectal bleeding, and Bradley's last colonoscopy being 9 years ago, I did recommend a followup colonoscopy for further evaluation. This will be done later this month given his concern regarding the bleeding and his family history. We did review the rationale for that in regard to colon cancer prevention. Given the finding of just the small area of Rodriguez's esophagus in July 2022, I did review with him the need for a followup endoscopy toward the latter part of 2024 for surveillance given the theoretical increased risk of esophageal cancer in patients with Rodriguez's esophagus. At this point he is asymptomatic in regard to any reflux issues and therefore I don't think he needs to be on any acid suppression therapy. He is obviously missing the majority of the stomach and therefore I don't think that is an issue anyway in regard to acid production. Full consent was obtained from him for the colonoscopy,, including risks of bleeding and perforation. The procedure will be done with monitored anesthesia care. I did advise Bradley that he should have a screening colonoscopy every 5 years given the family history, even if this upcoming colonoscopy is negative. Bradley was comfortable with this plan. Thank you again for allowing me to participate in Bradley's care. I shall continue to keep you advised of his progress. 09/14/2024 Diverticulosis of large intestine without perforation or abscess without bleeding (ICD-10 - K57.30) 07/03/2025 Encounter for screening for malignant neoplasm of colon (ICD-10 - Z12.11) Overall, Bradley appears quite well. He is not having any new or worrisome GI complaints. We did review the negative colonoscopy last August and I advised him of the need for a follow-up colonoscopy in 2028 for further screening in regard to his father's history of colon cancer at a relatively early age in his 60s. I did recommend a follow-up upper endoscopy given his history of Rodriguez's esophagus and his last endoscopy being almost 3 years ago. We did review the theoretical increased risk of esophageal cancer in patients with Rodriguez's esophagus and the need for periodic surveillance endoscopies. Full consent is obtained for this, including risks of bleeding and perforation. The procedure will be done with monitored anesthesia care. Bradley was comfortable with this plan. Thank you again for allowing me to participate in Bradley's care. I shall continue to keep you advised of his progress. 08/22/2024 Encounter for other preprocedural examination (ICD-10 - Z01.818) Overall, Bradley appears quite well and seems to have benefited nicely from his recent revised bariatric surgery from a symptomatic standpoint. We did review that his loose bowel movements are consistent with some component of dumping syndrome and he should try to be careful with his diet and the amount of liquids he drinks with his meals. Given his significant family history of colon cancer in his father at approximately age 60, his recent episode of rectal bleeding, and Bradley's last colonoscopy being 9 years ago, I did recommend a followup colonoscopy for further evaluation. This will be done later this month given his concern regarding the bleeding and his family history. We did review the rationale for that in regard to colon cancer prevention. Given the finding of just the small area of Rodriguez's esophagus in July 2022, I did review with him the need for a followup endoscopy toward the latter part of 2024 for surveillance given the theoretical increased risk of esophageal cancer in patients with Rodriguez's esophagus. At this point he is asymptomatic in regard to any reflux issues and therefore I don't think he needs to be on any acid suppression therapy. He is obviously missing the majority of the stomach and therefore I don't think that is an issue anyway in regard to acid production. Full consent was obtained from him for the colonoscopy,, including risks of bleeding and perforation. The procedure will be done with monitored anesthesia care. I did advise Bradley that he should have a screening colonoscopy every 5 years given the family history, even if this upcoming colonoscopy is negative. Bradley was comfortable with this plan. Thank you again for allowing me to participate in Bradley's care. I shall continue to keep you advised of his progress. 09/14/2024 Other hemorrhoids (ICD-10 - K64.8) 08/22/2024 Rodriguez''s esophagus without dysplasia (ICD-10 - K22.70) We will plan to do a followup upper endoscopy toward the end of 2024 in regard to the reflux and Rodriguez's esophagus. Overall, Bradley appears quite well and seems to have benefited nicely from his recent revised bariatric surgery from a symptomatic standpoint. We did review that his loose bowel movements are consistent with some component of dumping syndrome and he should try to be careful with his diet and the amount of liquids he drinks with his meals. Given his significant family history of colon cancer in his father at approximately age 60, his recent episode of rectal bleeding, and Bradley's last colonoscopy being 9 years ago, I did recommend a followup colonoscopy for further evaluation. This will be done later this month given his concern regarding the bleeding and his family history. We did review the rationale for that in regard to colon cancer prevention. Given the finding of just the small area of Rodriguez's esophagus in July 2022, I did review with him the need for a followup endoscopy toward the latter part of 2024 for surveillance given the theoretical increased risk of esophageal cancer in patients with Rodriguez's esophagus. At this point he is asymptomatic in regard to any reflux issues and therefore I don't think he needs to be on any acid suppression therapy. He is obviously missing the majority of the stomach and therefore I don't think that is an issue anyway in regard to acid production. Full consent was obtained from him for the colonoscopy,, including risks of bleeding and perforation. The procedure will be done with monitored anesthesia care. I did advise Bradley that he should have a screening colonoscopy every 5 years given the family history, even if this upcoming colonoscopy is negative. Bradley was comfortable with this plan. Thank you again for allowing me to participate in Bradley's care. I shall continue to keep you advised of his progress. 08/22/2024 Rectal bleeding (ICD-10 - K62.5) Overall, Bradley appears quite well and seems to have benefited nicely from his recent revised bariatric surgery from a symptomatic standpoint. We did review that his loose bowel movements are consistent with some component of dumping syndrome and he should try to be careful with his diet and the amount of liquids he drinks with his meals. Given his significant family history of colon cancer in his father at approximately age 60, his recent episode of rectal bleeding, and Bradley's last colonoscopy being 9 years ago, I did recommend a followup colonoscopy for further evaluation. This will be done later this month given his concern regarding the bleeding and his family history. We did review the rationale for that in regard to colon cancer prevention. Given the finding of just the small area of Rodriguez's esophagus in July 2022, I did review with him the need for a followup endoscopy toward the latter part of 2024 for surveillance given the theoretical increased risk of esophageal cancer in patients with Rodriguez's esophagus. At this point he is asymptomatic in regard to any reflux issues and therefore I don't think he needs to be on any acid suppression therapy. He is obviously missing the majority of the stomach and therefore I don't think that is an issue anyway in regard to acid production. Full consent was obtained from him for the colonoscopy,, including risks of bleeding and perforation. The procedure will be done with monitored anesthesia care. I did advise Bradley that he should have a screening colonoscopy every 5 years given the family history, even if this upcoming colonoscopy is negative. Bradley was comfortable with this plan. Thank you again for allowing me to participate in Bradley's care. I shall continue to keep you advised of his progress. Plan Of Treatment Pending Test Test Name Order Date UPPER GI ENDOSCOPY 07/03/2025 Future Test Test Name Order Date COLONOSCOPY 12/19/2014 UPPER GI ENDOSCOPY 08/06/2022 COLONOSCOPY 08/22/2024 Next Appt Details Provider Name:Alfredo Zafar Taryn , 07/13/2025 02:30:00 PM, [address] [facility] , [place], [place], [phone], Insurance Providers Payer Name Payer Address Payer Phone Subscriber Number Group Number Insured Name Patient Relationship to Insured Coverage Start Date Coverage End Date [facility] [address] [place] [phone] [id number] BRADLEY FINLEY Self - patient is the insured MEDICAID OF [place] H [address] [place] [phone] [id number] BRADLEY FINLEY Self - patient is the insured Medical (General) History Medical History History ICD Code Denies AL,DM,CVA,renal disease HTN High cholesterol Asthma Negative colonoscopy in 2014-this was done for evaluation of occasional bleeding and his father's history of colon cancer in his 60s Upper endoscopy in July of 2022 revealed a small area of Rodriguez's esophagus without dysplasia. There was no esophagitis or esophageal stricture. There was some narrowing of the proximal stomach in relation to the previous gastric sleeve surgery. He underwent a revision of that as below. Negative colonoscopy in 08/2024 Surgical History Surgery Date(Month/Year) Gastric bypass by Dr. Romo as a revisi on to the sleeve 2022 Gastric sleeve surgery by Dr. Romo Nasal polyps removed Ear surgery Tonsillectomy and adenoidectomy
--- OUTSIDE RECORDS SUMMARY | 2025-07-04 11:12 | XMS_ITS | Clinical Summary ---
Author Organization [facility] [employer] Address [address] [place] [address] [address] [place] [address] Care Team Providers Care Dolly Pusher Name Role Phone Unavailable Primary Care Provider Unavailabl e Allergies No known active allergies Medications Sodium Fluoride 1.1 % cream Eden teeth for 2 minutes, morning and night. Spit, do not rinse. Do not eat or drink anything for 30 minutes following use. 112 g 3 5 Active Social History Tobacco Use Types Packs/Day Years Used Date Smoking Tobacco: Never Passive Smoke Exposure: Never Smokeless Tobacco: Never Tobacco Cessation:Counseling Given: Not Answered Sex and Gender Information Value Date Recorded Sex Assigned at Male 09/21/2022 10:15 AM EDT Legal Sex Male 10:15 AM EDT Gender Identity Male 07/04/2024 9:01 AM EDT Sexual Orientation Straight 07/04/2024 9: 01 AM EDT Last Filed Vital Signs Vital Sign Reading Time Taken Comments Blood Pressure 110/76 02/27/2025 10:47 AM EDT Pulse 66 09/12/2024 8:59 AM EDT Temperature - - Respiratory Rate - - Oxygen Saturation - - Inhaled Oxygen Concentration - - Weight - - Height - - Body Mass Index - - Plan of Treatment Health Maintenance Due Date Last Done Comments CT Colonography 1979 Colonoscopy 1979 Colorectal Cancer Screening 1979 Depression Screening 1979 FIT DNA/Cologuard 1979 FIT 1979 FOBT 1979 HIV Screening 1979 Lipid Panel 1979 SDOH Screening 1979 Sigmoidoscopy 1979 Disability Screening 1979 Alcohol/Substance Use Screening 1991 Family Planning (PISQ) 1994 Hepatitis C Screening 1997 DTaP/Tdap/Td Vaccines (1 - Tdap) 1998 Hepatitis B Vaccines (1 of 3 - 19+ 3-dose series) 1998 COVID-19 Vaccine ( - season) 2024 10/21/2021, 03/15/2021, 02/15/2021 Dental Oral Exam 03/14/2025 09/12/2024, , 01/04/2017, Additional history exists Dental Prophylaxis 03/14/2025 09/12/2024, 04/04/2010 Influenza Vaccine (#1) 2025 Dental X-Ray: Bitewings 12/13/2025 12/12/19, 09/12/2024, 07/04/2024, Additional history exists Tobacco Screening 02/27/2026 02/27/2025 Dental X-Ray: Full Mouth 09/13/2027 024, 01/04/2017, 07/10/2014, Additional history exists Zoster Vaccines (1 of 2) 2029 RSV Patients and Patients Aged 60 years or older (1 - 1-dose 75+ series) 2054 HIB Vaccines Aged Out No longer eligi [...] patient's age to complete this topic Meningococcal Vaccine Aged Out No natalie vipul eligible based on patient's age to complete this topic Pneumococcal Vaccine: Pediatrics (0 to 5 Years) and At-Risk Patients (6 to 49) Years Aged Out No longer eligible based on patient's age to complete this topic RSV under 20 months Aged Out No longe r eligible based on patient's age to complete this topic Rotavirus Vaccines Aged Out No longer eligible based on patient's age to complete this topic Procedures Procedure Name Priority Date/Time Associated Diagnosis Comments BITEWING - SINGLE RADIOGRAPHIC IMAGE Routine 12/12/2024 10:30 AM EST PROPHYLAXIS - ADULT Routine 09/12/2024 9 :00 AM EDT INTRAORAL - COMPLETE SERIES OF RADIOGRAPHIC IMAGES Routine 09/12/2024 9:00 AM EDT PERIODIC ORAL EVALUATION - ESTABLISHED PATIENT Routine 09/12/2024 9:00 AM EDT from Last 3 Months or Most Recently Relevant to Health Maintenance Insurance [facility] MEDICAID STAND ADULT
--- NOTE | 2025-07-12 12:25 | HO.ANESPROP2 ---
Documented by User: Katelynn Lehman NP 07/12/25 12:25 HPI - Anesthesia Eval Consult details Narrative: 45yo M for Upper Endoscopy PMFSH Active Problems Active Problems: All Active Problems COVID-19 (Acute) Past Medical History Medical History COVID Nasal polyp Asthma Elevated cholesterol HTN (hypertension) Family History Family History Father Heart problem Diabetes Mother Diabetes High blood pressure High cholesterol Family history of problems with anesthesia: No Surgical History Surgical History History of esophagogastroduodenoscopy (EGD) History of ear surgery History of tonsillectomy and adenoidectomy Hx of colonoscopy (~09/15/24) History of sleeve gastrectomy History of Problems with Anesthesia: Yes (PONV) Social History Social History Housing: House Are you a primary healthcare account manager to a significant other at home: No Do you presently have visiting nurse or other home services: No Alcohol intake: current Alcohol intake frequency: does not drink Patient Tobacco Use Status: Never used Tobacco Use of substances other than those prescribed or required for medical reasons: No Are you DNR?: No Advance Directives: No Advance Directives Information Provided: Yes service: No Current occupational status: employed Cognitive needs: No Hearing needs: No Vision needs: No Meds Allergies Allergy/AdvReac Type Severity Reaction Status Date / Time No Known Allergies Allergy Verified 07/13/25 08:30 Home Medications ?Medication ?Instructions ?Recorded ?Confirmed ?Last Taken ?Type gabapentin 100 mg capsule 100 mg PO TID 02/12/25 07/13/25 Unknown History Assessment and Plan Assessment Anesthesia Assessment: Chart Reviewed Final Anesthetic Review Family History of Problems with Anesthesia: No History of Problems with Anesthesia: Yes (PONV) Documented by User: Jane Muñoz MD 07/13/25 08:44 PMFSH Past Medical History Medical History COVID Nasal polyp Asthma Elevated cholesterol HTN (hypertension) Family History Family History Father Heart problem Diabetes Mother Diabetes High blood pressure High cholesterol Surgical History Surgical History History of esophagogastroduodenoscopy (EGD) History of ear surgery History of tonsillectomy and adenoidectomy Hx of colonoscopy (~09/15/24) History of sleeve gastrectomy Social History Social History Housing: House Are you a primary healthcare account manager to a significant other at home: No Do you presently have visiting nurse or other home services: No Alcohol intake: current Alcohol intake frequency: does not drink Patient Tobacco Use Status: Never used Tobacco Use of substances other than those prescribed or required for medical reasons: No Are you DNR?: No Advance Directives: No Advance Directives Information Provided: Yes service: No Current occupational status: employed Cognitive needs: No Hearing needs: No Vision needs: No Meds Allergies Allergy/AdvReac Type Severity Reaction Status Date / Time No Known Allergies Allergy Verified 07/13/25 08:30 Home Medications ?Medication ?Instructions ?Recorded ?Confirmed ?Last Taken ?Type gabapentin 100 mg capsule 100 mg PO TID 02/12/25 07/13/25 Unknown History Exam Airway Mallampati Class: II TM Dist: >3cm Neck ROM: Full Heart: rrr Lungs: cta Assessment and Plan Assessment Anesthesia Assessment: Anesthesia Plan Discussed Final Anesthetic Review NPO: Yes ASA Class: III Final Preanesthetic Review: No Changes in Pt Med Stat, Meds/Allgs Chart Reviewed, Consent Obtained/Reviewed and Anes Risks/Benef Reviewed Patient Risk: Intermediate Procedure Risk: Low Anesthetic Plan Anesthetic Plan: MAC: Disposition: Standard PACU
[2025-07-13 08:30] VITALS: BMI 29.7
[2025-07-13 08:36] VITALS: BP 117/71; PULSE 57; RESP 15; TEMP 36.7; O2SAT 98
[2025-07-13] MEDS: Lactated Ringers 1,000 ML 100 ML IVCONT (08:44)
[2025-07-13 10:26] VITALS: BP 81/45; PULSE 55; RESP 16; TEMP 36.6; O2SAT 100
--- NOTE | 2025-07-13 10:29 | P.BOP_ITS ---
Brief Operative Note Date of Service: 07/13/25 Pre-op diagnosis: Rodriguez's esophagus Post-op diagnosis: other (Same, Hiatal hernia) Procedure: EGD with biopsies Surgeon: Alfredo Centeno MD Anesthesia: MAC Was an Hospital Internship used for this Procedure?: No Estimated blood loss (mL): 2.0 Pathology: other (A. EG Junction at 39cm) Condition: stable Disposition: PACU
[2025-07-13 10:39] VITALS: BP 91/55; PULSE 62; RESP 18; O2SAT 98
--- NOTE | 2025-07-13 10:46 | OP_ITS ---
DATE OF SERVICE: 07/13/2025 SURGEON: Alfredo Centeno MD INDICATIONS: The patient presents for evaluation of history of Rodriguez's esophagus. Full consent obtained from him for this, including risks of bleeding and perforation. PREOPERATIVE DIAGNOSIS: Rodriguez esophagus. POSTOPERATIVE DIAGNOSIS: PROCEDURE PERFORMED: Esophagogastroduodenoscopy with biopsies. ESTIMATED BLOOD LOSS: COMPLICATIONS: ANESTHESIA: Monitored anesthesia care. ASSISTANTS: SPECIMENS: POSTOPERATIVE DIAGNOSES: Rodriguez esophagus, small hiatal hernia. DESCRIPTION OF PROCEDURE: The patient was placed in the left lateral decubitus position. The Olympus video gastroscope was passed in the posterior oropharynx and upper esophagus under direct vision. The scope was passed into distal esophagus. The gastroesophageal junction appeared at 39 cm. There were 2 small, less than 10 mm areas of possible Rodriguez's just above the EG junction. The remainder of the EG junction appeared regular and without any sign of esophagitis. The scope entered the stomach. There was a small gastric remnant. The scope was advanced to the anastomosis from his gastric bypass, which was widely patent. There was no sign of any ulceration. There did appear to be a single staple at the anastomosis. The small bowel mucosa appeared normal. There was no ulceration in the area of the anastomosis. The scope was/ withdrawn back into the gastric remnant. The gastric remnant mucosa appeared normal both in the forward and retroflexed positions. The scope was withdrawn Biopsies were obtained from the areas of possible Rodriguez's mucosa at the EG junction at 39 cm. Proximal to this, the esophageal mucosa appeared normal. Scope was withdrawn from the patient. He tolerated the procedure well and was returned to the recovery area in stable condition. IMPRESSION: 1. History of Rodriguez's esophagus, rule out dysplasia. 2. Small hiatal hernia. PLAN: The results of biopsies will be checked. Assuming there is no dysplasia, I would recommend a repeat upper endoscopy in 3 years. He presently does not take any medication for reflux symptoms and I advised him to simply observe things in that regard. At this point, I would recommend a repeat upper endoscopy in 2028, when he has his next colonoscopy. He will see me otherwise on a p.r.n. basis. MD ETHAN Caballero/KERON / [id number] LALI
[2025-07-13 10:54] VITALS: BP 98/56; PULSE 62; RESP 18; TEMP 37.1; O2SAT 98
[2025-07-13 11:06] VITALS: BP 105/55; PULSE 62; RESP 18; O2SAT 98
== END 2025-07-13 11:41 | disposition home or self-care (01) ==
PROVIDERS: PCP Internal Medicine; Visit Provider Internal Medicine
PROC: 0DJ08ZZ Inspection of Upper Intestinal Tract, Via Natural or Artificial Opening Endoscopic (ICD-10-PCS; CPT 43235; principal; 2025-07-13 09:30)
DX: K22.70 Barrett's esophagus without dysplasia (principal); K44.9 Diaphragmatic hernia without obstruction or gangrene; K21.9 Gastro-esophageal reflux disease without esophagitis; Z80.0 Family history of malignant neoplasm of digestive organs; Z98.84 Bariatric surgery status; Z98.0 Intestinal bypass and anastomosis status; I10 Essential (primary) hypertension; E78.00 Pure hypercholesterolemia, unspecified; J45.909 Unspecified asthma, uncomplicated; Z79.899 Other long term (current) drug therapy; Z98.890 Other specified postprocedural states
CPT/HCPCS: 43239; 88305; 88313; 88342; J2003; J2250; J2371; J2704